=== PATIENT | female | born 1950 | race Caucasian/White ===

== ENCOUNTER → 2018-03-20 07:39 | Outpatient (CLI) | payer MEDICARE, OTHER, SELFPAY ==
[2018-03-20 08:25] LABS: Add Manual Diff / Slide Review NO; Basophils Percent Auto 1.9 % (0-2); Eosinophils Percent Auto 12.5 % (2-4); Hematocrit 39.2 % (36-46); Hemoglobin 12.9 g/dL (12.0-16.0); Lymphocytes Percent Auto 19.2 % (25-40); Mean Corpuscular HGB Conc 32.8 % (30-36); Mean Corpuscular Hemoglobin 26.9 PG (26-34); Mean Corpuscular Volume 82.2 fL (80-100); Monocytes Percent Auto 11.1 % (3-14); Neutrophils Absolute Auto 3100 /uL (3000-5900); Neutrophils Percent Auto 55.3 % (50-75); Platelet Count 312 X10^3/uL (150-400); Red Blood Cell Count 4.78 X10^6/uL (4.0-5.2); Red Cell Distribution Width 14.9 % (11.6-14.8); White Blood Cell Count 5.5 X10^3/uL (4.5-11.0)
[2018-03-20 08:57] LABS: Alanine Aminotransferase 27 IU/L (9-52); Albumin 4.2 g/dL (3.5-5.0); Albumin Globulin Ratio 1.4 (1.0-2.8); Alkaline Phosphatase 67 U/L (38-126); Aspartate Aminotransferase 25 IU/L (14-36); BUN Creatinine Ratio 18.8 (6-22); Bilirubin Total 0.5 mg/dL (0.2-1.3); Blood Urea Nitrogen 15 mg/dL (7-17); Calcium 9.2 mg/dL (8.4-10.2); Carbon Dioxide 28 mmol/L (22-32); Chloride 103 mmol/L (98-107); Cholesterol 253 mg/dL (140-199); Estimated Glomerular Filt Rate > 60.0 mL/min (>60); Globulin 2.9 g/dL (1.7-4.1); Glucose 100 mg/dL (80-110); HDL Cholesterol 66 mg/dL (40-60); HEMOLYSIS < 15 (0-50); LDL Cholesterol Calculated 161 mg/dL (<100); Potassium 4.3 mmol/L (3.4-5.1); Sodium 139 mmol/L (137-145); Total Protein 7.1 g/dL (6.3-8.2); Triglycerides 130 mg/dL (35-150)
== END ==
PROVIDERS: PCP Family Medicine; Visit Provider Family Medicine
DX: E78.2 Mixed hyperlipidemia (principal); E03.9 Hypothyroidism, unspecified
CPT/HCPCS: 36415; 80053; 80061; 84439; 84443; 85025

== ENCOUNTER → 2018-03-22 15:14 | Outpatient (CLI) | payer MEDICARE, OTHER, SELFPAY | PROVIDERS: Family Provider Naturopath; PCP Family Medicine; Visit Provider Physician Assistant | DX: N30.01 Acute cystitis with hematuria (principal) | CPT/HCPCS: 87086 ==

== ENCOUNTER → 2018-05-23 12:17 | Outpatient (CLI) | payer MEDICARE, OTHER, SELFPAY ==
[2018-05-23 14:02] LABS: Thyroid Stimulating Hormone 0.06 uIU/mL (0.47-4.68)
== END ==
PROVIDERS: Family Provider Naturopath; PCP Family Medicine; Visit Provider Family Medicine
DX: E03.9 Hypothyroidism, unspecified (principal)
CPT/HCPCS: 36415; 84443

== ENCOUNTER → 2018-06-25 12:36 | Outpatient (CLI) | payer MEDICARE, OTHER, SELFPAY ==
--- NOTE | 2018-06-25 12:39 | DI.MG.S_ITS ---
BILATERAL DIGITAL SCREENING MAMMOGRAM 3D/2D WITH CAD: 06/25/2018 CLINICAL: Routine screening. Comparison is made to exams dated: 03/23/2017 mammogram and 07/24/2014 mammogram - [facility]. The tissue of both breasts is heterogeneously dense. This may lower the sensitivity of mammography. Current study was also evaluated with a Computer Aided Detection (CAD) system. There is a focal asymmetry in the left breast at 6 o'clock posterior depth. No other significant masses, calcifications, or other findings are seen in either breast. IMPRESSION: INCOMPLETE: NEEDS ADDITIONAL IMAGING EVALUATION The focal asymmetry in the left breast is indeterminate. Additional views with possible ultrasound are recommended. This exam was interpreted at Station ID: [id number]. NOTE: For mammograms, a report in lay terms will be sent to the patient. Approximately 15% of breast malignancies will not be visualized mammographically. In the management of a palpable breast mass, a negative mammogram must not discourage biopsy of a clinically suspicious lesion. Electronically Signed By: Noris low/shaji:06/25/2018 13:22:08 letter sent: Additional Imaging Needed ACR BI-RADS Category 0: Incomplete 3340F
== END ==
PROVIDERS: Family Provider Naturopath; PCP Family Medicine; Visit Provider Family Medicine
DX: Z12.31 Encounter for screening mammogram for malignant neoplasm of breast (principal)
CPT/HCPCS: 77063; 77067

== ENCOUNTER → 2018-07-11 13:47 | Outpatient (CLI) | payer MEDICARE, OTHER, SELFPAY ==
[2018-07-11 15:41] LABS: Thyroid Stimulating Hormone 0.16 uIU/mL (0.47-4.68)
== END ==
PROVIDERS: Family Provider Naturopath; PCP Family Medicine; Visit Provider Family Medicine
DX: E03.9 Hypothyroidism, unspecified (principal)
CPT/HCPCS: 36415; 84443

== ENCOUNTER → 2018-07-18 13:41 | Outpatient (CLI) | payer MEDICARE, OTHER, SELFPAY ==
--- NOTE | 2018-07-18 13:45 | DI.US.S_ITS ---
ULTRASOUND OF LEFT BREAST: 07/18/2018 CLINICAL: Patient returns for additional imaging over a suspected mass in the left breast. Comparison is made to exams dated: 07/18/2018 mammogram, 06/25/2018 mammogram, and 03/23/2017 mammogram - [facility]. Color flow and real-time ultrasound of the left breast were performed on the areas of interest. Weeks scale images of the real-time examination were reviewed. There is 0.8 cm x 1.2 cm x 0.8 cm irregular mass in the left breast at 6 o'clock posterior depth. This irregular mass is hypoechoic with posterior acoustic shadowing. This correlates with mammography findings. IMPRESSION: HIGHLY SUGGESTIVE OF MALIGNANCY The 0.8 cm x 1.2 cm x 0.8 cm irregular mass in the left breast is highly suggestive of malignancy. An ultrasound guided biopsy is recommended. This exam was interpreted at Station ID: [id number]. SUMMARY: This was discussed with the patient by the radiologist Dr. Fonseca at the time of the exam. Electronically Signed By: Noris low/:07/18/2018 16:25:26 letter sent: Biopsy Required Ultrasound BI-RADS: 5 Highly suggestive of malignancy
--- NOTE | 2018-07-18 13:45 | DI.MG.S_ITS ---
UNILATERAL LEFT DIGITAL DIAGNOSTIC MAMMOGRAM 3D/2D WITH ADDITIONAL VIEWS: 07/18/2018 CLINICAL: Additional evaluation requested from prior study. Comparison is made to exams dated: 06/25/2018 mammogram, 03/23/2017 mammogram, and 07/24/2014 mammogram - [facility]. The tissue of left breast is heterogeneously dense. This may lower the sensitivity of mammography. There is a focal asymmetry in the left breast at 6 o'clock posterior depth. This is seen in additional views. No other significant masses or calcifications are seen in the breast. IMPRESSION: INCOMPLETE: NEEDS ADDITIONAL IMAGING EVALUATION The focal asymmetry in the left breast is indeterminate. A targeted ultrasound of the left breast is recommended and will be performed immediately following this exam. This exam was interpreted at Station ID: [id number]. NOTE: For mammograms, a report in lay terms will be sent to the patient. Approximately 15% of breast malignancies will not be visualized mammographically. In the management of a palpable breast mass, a negative mammogram must not discourage biopsy of a clinically suspicious lesion. Electronically Signed By: Noris Earl M.D. lk/:07/18/2018 15:47:43 letter sent: Additional Imaging Needed ACR BI-RADS Category 0: Incomplete 3340F
== END ==
PROVIDERS: Family Provider Naturopath; PCP Family Medicine; Visit Provider Family Medicine
DX: R92.8 Other abnormal and inconclusive findings on diagnostic imaging of breast (principal); N63.20 Unspecified lump in the left breast, unspecified quadrant
CPT/HCPCS: 76642; 77065; G0279

== ENCOUNTER → 2018-08-03 13:10 | Outpatient (CLI) | payer MEDICARE, OTHER, SELFPAY ==
--- NOTE | 2018-08-03 | PATH_ITS ---
[facility] Accession Number: [id number] . 01 Material submitted: . LEFT BREAST MASS 6 O'CLOCK 4 CM FROM NIPPLE . 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 [place]ren grade 2 (poor tubule formation, intermediate nuclear grade, low mitotic activity). 2. Greatest linear extent: 0.6 cm, as measured on glass slide. 3. Ductal carcinoma in situ: Present, solid. 4. Microcalcifications: Not identified. 5. Lymphovascular invasion: Not identified. . CAP BREAST BIOMARKER REPORTING TEMPLATE: . Estrogen Receptor (ER) Status: Positive, 90%. Average intensity of staining: Strong. Primary antibody: SP1 Progesterone Receptor (PgR) Status: Positive, 90%. Average intensity of staining: Strong. Primary antibody: 1E2 HER2 (by immunohistochemistry): Equivocal (2+) Percentage of cells with uniform intense complete membrane staining: Primary antibody: 4B5 . Cold Ischemia and Fixation Times: Meets requirements in the latest version of the ASCO/CAP guidelines. Testing performed on Block Number: MRV/08/07/2018 . 02 Comment: FISH for HER2 gene amplification will be performed and results issued in an addendum. . As part of routine software quality tester, Dr. Ryder has reviewed this case and agrees with the above diagnosis. The finding of ductal carcinoma was repoted to Dr. Cazares's nurse, Lynda, by Dr. Olivier Logan on 08/07/2018 at 3 p.m. . 02 Electronically signed: . Olivier Logan MD, PhD, Pathologist NPI- [id number] . 01 Gross description: . Received in formalin, labeled US BX breast per W device, are multiple core biopsies of zapata-white and bright yellow fibrofatty tissue (lengths: 1.1 cm-2.0 cm, diameters-0.2 cm). Entirely submitted in cassette A1. Note: Approximate total fixation time in formalin-43 hours 30 minutes calculated using a collection date of 08/03/2018 with a time in fixative of 1410. ([id number]) /MRV . 02 Microscopic: . Sections are of breast parenchyma infiltrated by a proliferation of epithelioid cells in both nested and linear profiles, consistent with carcinoma. To further evaluate the carcinoma cells, an e-cadherin immunostain is performed and is strongly and diffusely positive, consistent with ductal carcinoma, and strongly arguing against lobular carcinoma. Additionally, the carcinoma cells are strongly and diffusely positive for estrogen receptor and progesterone receptor immunoreactivity. The carcinoma cells are equivocal (2+) for HER-2 protein overexpression by immunohistochemistry. All control stains show appropriate reactivity. . * This test was developed and its performance characteristics determined by [employer]. It has not been cleared or approved by the U.S. Food and Drug Administration. The FDA has determined that such clearance or approval is not necessary. This test is used for clinical purposes. It should not be regarded as investigational or for research. . 02 Pathologist provided ICD-10: C50.912 . 02 CPT . 067040, C40559, R18291 Performed at: 01 [facility] [address] [id number] MD Darwin Solis MD Phone: [phone] Performed at: [address] [id number] MD Marcia Ryder MD Phone: [phone]
--- NOTE | 2018-08-03 | DI.MG.S_ITS ---
UNILATERAL LEFT DIGITAL DIAGNOSTIC MAMMOGRAM POST-NEEDLE BIOPSY: 08/03/2018 CLINICAL: Left breast mass. Post clip placement. Comparison is made to exams dated: 07/18/2018 ultrasound, 07/18/2018 mammogram, and 06/25/2018 mammogram - [facility]. The tissue of left breast is heterogeneously dense. This may lower the sensitivity of mammography. There is a marker clip in the appropriate position in the left breast at 6 o'clock middle depth. This marker clip placement is at the biopsy site. IMPRESSION: POST PROCEDURE MAMMOGRAM FOR MARKER PLACEMENT There was a successful marker clip placement in the left breast middle depth. This exam was interpreted at Station ID: [id number]. NOTE: For mammograms, a report in lay terms will be sent to the patient. Approximately 15% of breast malignancies will not be visualized mammographically. In the management of a palpable breast mass, a negative mammogram must not discourage biopsy of a clinically suspicious lesion. Electronically Signed By: Christopher rush/:08/03/2018 15:41:35 ACR BI-RADS Category Post-procedure mammogram for marker placement
--- NOTE | 2018-08-03 13:12 | DI.US.S_ITS ---
ULTRASOUND GUIDED BIOPSY LEFT BREAST USING VACUUM DEVICE WITH MARKING DEVICE INSERTED: 08/03/2018 CLINICAL: Left breast mass. PATIENT CONSENT: Risks (minor bleeding, infection, vasovagal reaction and repeat procedure), benefits and alternatives were explained to the patient and written informed consent was obtained. Correlation is made to exams dated: 07/18/2018 ultrasound, 07/18/2018 mammogram, and 06/25/2018 mammogram - [facility]. An ultrasound guided biopsy using real-time ultrasound was performed for the irregular shaped lesion located in the left breast at 6 o'clock posterior depth. The skin was prepped in the usual manner. Local anesthetic was administered to the access site. A small incision was made in the breast. The abnormality was approached from the lateral aspect. A biopsy needle was placed adjacent to the abnormality under ultrasound guidance. Once the needle was documented to be in the correct location, five specimens were obtained using the Mammotome biopsy system. A clip was inserted into the biopsy cavity. The specimens were sent to the laboratory for pathological analysis. IMPRESSION: ULTRASOUND GUIDED BIOPSY MALIGNANT Ultrasound guided biopsy of the lesion in the left breast at 6 o'clock posterior depth was successful. Pathology indicates malignant invasive ductal carcinoma (ID). Pathology results are concordant with imaging findings. This exam was interpreted at Station ID: [id number]. Christopher rush,devante/:08/08/2018 17:33:41
== END ==
PROVIDERS: Family Provider Naturopath; PCP Family Medicine; Visit Provider Family Medicine
DX: C50.812 Malignant neoplasm of overlapping sites of left female breast (principal); Z17.0 Estrogen receptor positive status [ER+]
CPT/HCPCS: 19083; 77065; 88305; 88341; 88342

== ENCOUNTER → 2018-08-27 12:53 | Outpatient (CLI) | payer MEDICARE, OTHER, SELFPAY ==
[2018-08-27 14:07] LABS: Free T3, Triiodothyronine Free 3.03 pg/mL (2.77-5.27); Free T4, Direct Thyroxine 1.32 ng/dL (0.78-2.19)
[2018-08-27 14:20] LABS: Thyroid Stimulating Hormone 1.91 uIU/mL (0.47-4.68)
== END ==
PROVIDERS: PCP Family Medicine; Visit Provider Family Medicine
DX: E03.9 Hypothyroidism, unspecified (principal)
CPT/HCPCS: 36415; 84439; 84443; 84481

== ENCOUNTER → 2018-11-13 14:03 | Outpatient (CLI) | payer MEDICARE, OTHER, SELFPAY | PROVIDERS: Family Provider Naturopath; PCP Family Medicine; Visit Provider Internal Medicine Hematology & Oncology | DX: C50.919 Malignant neoplasm of unspecified site of unspecified female breast (principal); Z78.0 Asymptomatic menopausal state; E07.9 Disorder of thyroid, unspecified | CPT/HCPCS: 77080 ==

== ENCOUNTER → 2018-11-23 07:49 | Outpatient (CLI) | payer MEDICARE, OTHER, SELFPAY ==
[2018-11-23 09:17] LABS: Cholesterol 264 mg/dL (140-199); HDL Cholesterol 65 mg/dL (40-60); LDL Cholesterol Calculated 177 mg/dL (<100); Triglycerides 111 mg/dL (35-150)
== END ==
PROVIDERS: Family Provider Naturopath; PCP Family Medicine; Visit Provider Internal Medicine Hematology & Oncology
DX: C50.512 Malignant neoplasm of lower-outer quadrant of left female breast (principal); E78.5 Hyperlipidemia, unspecified
CPT/HCPCS: 36415; 80061

== ENCOUNTER 2019-01-22 09:00 | Outpatient (RCR) | payer MEDICARE, OTHER, SELFPAY ==
--- NOTE | 2018-12-27 15:12 | PT.OIE ---
Current Diagnoses Other specified postprocedural states (12/27/18) Past Medical History (Last Updated 11/29/18 @ 10:54 by Diana Cazares MD) Breast cancer (Chronic) Hyperlipidemia (Chronic) Ankle pain (Chronic 1996) Diverticular disease (Chronic 2006) Fibroids (Chronic) Frequent UTI (Chronic 1977) Glaucoma (Chronic 2011) Hypothyroidism (Chronic) Pinguecula (Chronic 1991) Pterygium (Chronic 1991) Ankle sprain (Resolved 1996) Chicken pox (Resolved 1961) Colon polyps (Resolved 2006) HSV-1 (herpes simplex virus 1) infection (Resolved 1953) Infertility (Resolved) Measles (Resolved 1959) Mumps (Resolved 1959) Rubella (Resolved 1959) Scarlet fever (Resolved 1958) Shingles (Resolved 2010) Urethral cyst (Resolved 2000) Past Surgical History (Last Updated 03/23/18 @ 11:27 by Martina Vance) Anesthesia (Resolved) History of colonoscopy with polypectomy (Resolved 07/2013) History of urinary tract surgery (Resolved 2000) Status post tonsillectomy and adenoidectomy (Resolved 1959) Provider Visit Care Team Role Provider Type Chiara Lang ND Family Provider Non-Staff Specialty: Naturopathy Address: [address] [place] [address] Email: Diana Cazares MD Attending Provider Physician Primary Care Provider Specialty: Family Practice Address: [address] [place] [address] Email: [email or web address] Physical Therapy Initial Evaluation PT-OP-A Visit Information Start: 12/27/18 13:47 Freq: Status: Active Protocol: Document 12/27/18 13:47 HUBERT (Rec: 12/27/18 14:47 SAK [id number]) Out-Patient Physical Therapy Visit Information Visit Information Visit Type Initial Evaluation Visit Start Time 13:45 Visit Stop Time 14:30 Total Visit Minutes 45 Visit Number 1 Number of BANDAGE WRAPPING MACHINE OPERATOR Visits 0 Evaluation Information Evaluation Date 12/27/18 Precautions Precautions Just finished radiation treatments 12/26/18 PT-OP-B Current Condition Start: 12/27/18 13:47 Freq: Status: Active Protocol: Document 12/27/18 13:47 [facility] (Rec: 12/27/18 14:47 [facility] [id number]) Current Condition History of Current Condition Onset Date July 2018 Current Complaints Concerned about potential for lymphedema History of Current Condition diagnosed left breast CA July 2018, lumpectomy 10/03 with 3 lymph nodes removed . all benign. Completed radiation 12/26/18. Reports pink, tender and bumpy skin. Using ointment consistently. Has appointment with oncologist 01/10/19, possible medication for 5 years. Concerned about potential for and prevention of lymphedema. Patient reports she has full range of motion of her left UE , prior to her diagnosis and treatment exercised at home to include resistance ex with tubing, push-ups, stretching. Would like to be able to resume her prior ex. Treatment Goals Patient/Caregiver Goals Education regarding lymphedema , screening, resume prior activity level. 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 [employer] Baseline Function- Recreation/Hobbies painting Current Functional Impairments (Reported) Functional Limitations- ADL's No limitations Functional Limitations- Mobility/Gait no limitations Functional Limitations- Work/School Not doing any physical work Functional Limitations- Recreation/ Not doing ex program Hobbies PT-OP-C Subjective Start: 12/27/18 13:47 Freq: Status: Active Protocol: Document 12/27/18 13:47 [facility] (Rec: 12/27/18 15:12 [facility] [id number]) Patient Questionnaires Lymphedema Life Impact Score Lymphedema Score 0 Lymphedema Impairment 0% Impaired (Score 18) OP-PT Pain Assessment Pain Assessment Grid Paper Pain Assessment Grid Completed Yes Comments Pain Comments Denies pain PT-OP-K Range of Motion Start: 12/27/18 13:47 Freq: Status: Active Protocol: Document 12/27/18 13:47 [facility] (Rec: 12/27/18 15:12 [facility] [id number]) Shoulder Goniometric Range of Motion Shoulder Measured in Degrees stefani Shoulder ROM WFL Yes PT-OP-N Lymphedema Start: 12/27/18 13:47 Freq: Status: Active Protocol: Document 12/27/18 13:47 [facility] (Rec: 12/27/18 15:12 [facility] [id number]) Lymphedema Measurements Upper Extremity Circumference Measurements Left Affected MCP 19.3 cm Wrist 16.8 cm 5 cm From Distal Crease 18 cm 10 cm From Distal Crease 21 cm 15 cm From Distal Crease 24.1 cm 20 cm From Distal Crease 25.1 cm 25 cm From Distal Crease 26.4 cm 30 cm From Distal Crease 27.3 cm 35 cm From Distal Crease 29.6 cm 40 cm From Distal Crease 31.3 cm Axilla 35 cm right MCP 20 cm Wrist 18 cm 5 cm From Distal Crease 21.7 cm 10 cm From Distal Crease 24.5 cm 15 cm From Distal Crease 25 cm 20 cm From Distal Crease 26 cm 25 cm From Distal Crease 27.2 cm 30 cm From Distal Crease 29.5 cm 35 cm From Distal Crease 31.4 cm 40 cm From Distal Crease 31.5 cm Axilla 33.6 cm PT-OP-Q Treatments Start: 12/27/18 13:47 Freq: Status: Active Protocol: Document 12/27/18 13:47 [facility] (Rec: 12/27/18 15:12 [facility] [id number]) Lymphedema Treatment Patient Education Lymphedema Prevention completed, written handout and discussion Lymphedema Precautions completed, written handout and discussion Compression Garments Given written information; measurements and lymphedema products website inf PT-OP-T Assessment and Plan Start: 12/27/18 13:47 Freq: Status: Active Protocol: Document 12/27/18 13:47 [facility] (Rec: 12/27/18 15:12 [facility] [id number]) Physical Therapy Assessment Rehab Potential Rehabilitation Potential Excellent Evaluation Complexity Number of Personal Factors/Comorbidities 1-2 Number of Body Systems Impaired 1-2 Clinical Presentation at Evaluation Evolving Impairments Impairments Edema Goals 1 Impairment knowledge deficit regarding lymphedema Short Term Goal (STG) Educate patient regarding prevention, precautions, physiology of lymphedema. STG Duration 1 month Mcfp Goal (LTG) Patient to have no signs or symptoms of lymphedema, demonstrate good understanding of following precautions, and obtain compression sleeve for left UE to be used with plane travel and heavy physical activity for prevention of lymphedema. LTG Duration 2 months Assessment Summary Assessment Patient presents to PT 1 day after completing radiation treatments due to diagnosis of left breast CA, s/p lumpectomy with 3 lymph nodes removed 10/03/18. She has full range of motion of her left shoulder, well-healed surgical scar with good mobility. Her skin is reddened and tender but intact following radiation treatments. At this time does not have signs or symptoms of lymphedema, though circumferential measurement at left axilla 1.4 cm larger than right; feel this is likely due to inflammation and swelling s/p radiation. She demonstrated good understanding of lymphedema precautions and prevention. Agreeable to follow-up appointment in 2-3 weeks to remeasure at axilla, do further education as needed, and evaluate compression sleeve that she plans to obtain for prevention after discussion of benefits. Will determine need for any further PT visits at that time . Physical Therapy Plan Frequency and Duration Frequency of Treatment 4 visits Duration of Treatment 2 months Plan of Care Start Date 12/27/18 Plan of Care End Date 02/26/19 Therapeutic Interventions Therapeutic Interventions Home Exercise Program Lymphedema Management Manual Therapy Patient/Caregiver Education Therapeutic Activities Therapeutic Exercises Next Visit Focus/Plan Next Note Type Treatment Note Next Visit Plan circumferential measurement left axilla, evaluate for signs and symptoms of lymphedema, complete education regarding prevention and precautions as needed. Evaluate fit of compression sleeve if patient obtains.
--- NOTE | 2018-12-27 15:13 | PT.OPPOC ---
Current Diagnoses Other specified postprocedural states (12/27/18) Provider Visit Care Team Role Provider Type Chiara Lang ND Family Provider Non-Staff Specialty: Naturopathy Address: [address] [place] [address], [id number] Email: Diana Cazares MD Attending Provider Physician Primary Care Provider Specialty: Family Practice Address: [address] [place] [address], [address] Email: [email or web address] Plan Of Care PT-OP-T Assessment and Plan Start: 12/27/18 13:47 Freq: Status: Active Protocol: Document 12/27/18 13:47 [facility]UBERT (Rec: 12/27/18 15:12 SAK [id number]) Physical Therapy Assessment Rehab Potential Rehabilitation Potential Excellent Evaluation Complexity Number of Personal Factors/Comorbidities 1-2 Number of Body Systems Impaired 1-2 Clinical Presentation at Evaluation Evolving Impairments Impairments Edema Goals 1 Impairment knowledge deficit regarding lymphedema Short Term Goal (STG) Educate patient regarding prevention, precautions, physiology of lymphedema. STG Duration 1 month Residential Goal (LTG) Patient to have no signs or symptoms of lymphedema, demonstrate good understanding of following precautions, and obtain compression sleeve for left UE to be used with plane travel and heavy physical activity for prevention of lymphedema. LTG Duration 2 months Assessment Summary Assessment Patient presents to PT 1 day after completing radiation treatments due to diagnosis of left breast CA, s/p lumpectomy with 3 lymph nodes removed 10/03/18. She has full range of motion of her left shoulder, well-healed surgical scar with good mobility. Her skin is reddened and tender but intact following radiation treatments. At this time does not have signs or symptoms of lymphedema, though circumferential measurement at left axilla 1.4 cm larger than right; feel this is likely due to inflammation and swelling s/p radiation. She demonstrated good understanding of lymphedema precautions and prevention. Agreeable to follow-up appointment in 2-3 weeks to remeasure at axilla, do further education as needed, and evaluate compression sleeve that she plans to obtain for prevention after discussion of benefits. Will determine need for any further PT visits at that time . Physical Therapy Plan Frequency and Duration Frequency of Treatment 4 visits Duration of Treatment 2 months Plan of Care Start Date 12/27/18 Plan of Care End Date 02/26/19 Therapeutic Interventions Therapeutic Interventions Home Exercise Program Lymphedema Management Manual Therapy Patient/Caregiver Education Therapeutic Activities Therapeutic Exercises Next Visit Focus/Plan Next Note Type Treatment Note Next Visit Plan circumferential measurement left axilla, evaluate for signs and symptoms of lymphedema, complete education regarding prevention and precautions as needed. Evaluate fit of compression sleeve if patient obtains. Plan of Care Dates Plan of Care Start Date 12/27/18 Plan of Care End Date 02/26/19 Please Sign and Return: I have reviewed this Plan of Care and certify that the skilled therapy services above are required to meet the patient?s needs. Physician Signature Date Printed Name and Credentials Clinical Instructor Signature Printed Name and Credentials
--- NOTE | 2019-01-08 10:28 | PT.OTN ---
Current Diagnoses Other specified postprocedural states (01/08/19) Physical Therapy Treatment Note PT-OP-A Visit Information Start: 12/27/18 13:47 Freq: Status: Active Protocol: Document 01/08/19 09:00 GGD (Rec: 01/08/19 10:28 GGD [email or web address]) Out-Patient Physical Therapy Visit Information Visit Information Visit Type Treatment Note Visit Start Time 09:00 Visit Stop Time 10:00 Total Visit Minutes 60 Visit Number 2 Number of DINING HOST Visits 1 Evaluation Information Evaluation Date 12/27/18 PT-OP-B Current Condition Start: 12/27/18 13:47 Freq: Status: Active Protocol: Document 12/27/18 13:47 SAK (Rec: 12/27/18 14:47 SAK [id number]) Current Condition History of Current Condition Onset Date July 2018 Current Complaints Concerned about potential for lymphedema History of Current Condition diagnosed left breast CA July 2018, lumpectomy 10/03 with 3 lymph nodes removed . all benign. Completed radiation 12/26/18. Reports pink, tender and bumpy skin. Using ointment consistently. Has appointment with oncologist 01/10/19, possible medication for 5 years. Concerned about potential for and prevention of lymphedema. Patient reports she has full range of motion of her left UE , prior to her diagnosis and treatment exercised at home to include resistance ex with tubing, push-ups, stretching. Would like to be able to resume her prior ex. Treatment Goals Patient/Caregiver Goals Education regarding lymphedema , screening, resume prior activity level. 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 PT-OP-K Range of Motion Start: 12/27/18 13:47 Freq: Status: Active Protocol: Document 12/27/18 13:47 SAK (Rec: 12/27/18 15:12 SAK [id number]) Shoulder Goniometric Range of Motion Shoulder Measured in Degrees stefani Shoulder ROM WFL Yes PT-OP-N Lymphedema Start: 12/27/18 13:47 Freq: Status: Active Protocol: Document 01/08/19 09:00 GGD (Rec: 01/08/19 10:28 GGD [email or web address]) Lymphedema Measurements Upper Extremity Circumference Measurements Left Affected MCP 19.2 cm Wrist 16.1 cm 5 cm From Distal Crease 17.6 cm 10 cm From Distal Crease 20.5 cm 15 cm From Distal Crease 23.9 cm 20 cm From Distal Crease 24.9 cm 25 cm From Distal Crease 26.1 cm 30 cm From Distal Crease 26.9 cm 35 cm From Distal Crease 28.8 cm 40 cm From Distal Crease 31.2 cm Axilla 34.5 cm PT-OP-Q Treatments Start: 12/27/18 13:47 Freq: Status: Active Protocol: Document 01/08/19 09:00 GGD (Rec: 01/08/19 10:28 GGD [email or web address]) Therapeutic Exercises Sidelying Exercises 1 Sidelying Exercise Name roll and reach Reps/Minutes 10x Manual Therapy Treatment Soft Tissue Mobilization 1 Body Location left shoulder and axilla Mobilization Type Rolling Other Intensity/Depth Moderate Body Position Supine Lymphedema Treatment Sequential Lymphedema Exercises Location UE Duration 15 min Patient Education Lymphedema Precautions reviewed Sequential Lymphedema Exercises written handout and reviewed PT-OP-T Assessment and Plan Start: 12/27/18 13:47 Freq: Status: Active Protocol: Document 01/08/19 09:00 GGD (Rec: 01/08/19 10:28 GGD [email or web address]) Physical Therapy Assessment Assessment Summary Assessment PT had decrease in circumferential measurements. She had mild decrease in scar tissue mobility. She had good tolerance to exercise. Physical Therapy Plan Frequency and Duration Frequency of Treatment 4 visits Duration of Treatment 2 months Plan of Care Start Date 12/27/18 Plan of Care End Date 02/26/19 Therapeutic Interventions Therapeutic Interventions Home Exercise Program Lymphedema Management Manual Therapy Patient/Caregiver Education Therapeutic Activities Therapeutic Exercises Next Visit Focus/Plan Next Note Type Treatment Note Next Visit Plan circumferential measurement left axilla, evaluate for signs and symptoms of lymphedema, Evaluate fit of compression sleeve if patient obtains. Progress HEP
--- NOTE | 2019-01-22 10:20 | PT.OTN ---
Current Diagnoses Other specified postprocedural states (01/22/19) Physical Therapy Treatment Note PT-OP-A Visit Information Start: 12/27/18 13:47 Freq: Status: Active Protocol: Document 01/22/19 09:57 GGD (Rec: 01/22/19 10:19 GGD [email or web address]) Out-Patient Physical Therapy Visit Information Visit Information Visit Type Treatment Note Visit Start Time 09:00 Visit Stop Time 09:55 Total Visit Minutes 55 Visit Number 3 Number of STAY CUTTER Visits 2 Evaluation Information Evaluation Date 12/27/18 PT-OP-B Current Condition Start: 12/27/18 13:47 Freq: Status: Active Protocol: Document 12/27/18 13:47 SAK (Rec: 12/27/18 14:47 SAK [id number]) Current Condition History of Current Condition Onset Date July 2018 Current Complaints Concerned about potential for lymphedema History of Current Condition diagnosed left breast CA July 2018, lumpectomy 10/03 with 3 lymph nodes removed . all benign. Completed radiation 12/26/18. Reports pink, tender and bumpy skin. Using ointment consistently. Has appointment with oncologist 01/10/19, possible medication for 5 years. Concerned about potential for and prevention of lymphedema. Patient reports she has full range of motion of her left UE , prior to her diagnosis and treatment exercised at home to include resistance ex with tubing, push-ups, stretching. Would like to be able to resume her prior ex. Treatment Goals Patient/Caregiver Goals Education regarding lymphedema , screening, resume prior activity level. 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 PT-OP-K Range of Motion Start: 12/27/18 13:47 Freq: Status: Active Protocol: Document 12/27/18 13:47 SAK (Rec: 12/27/18 15:12 SAK [id number]) Shoulder Goniometric Range of Motion Shoulder Measured in Degrees stefani Shoulder ROM WFL Yes PT-OP-N Lymphedema Start: 12/27/18 13:47 Freq: Status: Active Protocol: Document 01/22/19 09:57 GGD (Rec: 01/22/19 10:19 GGD [email or web address]) Lymphedema Measurements Upper Extremity Circumference Measurements Left Affected MCP 19 cm Wrist 16.2 cm 5 cm From Distal Crease 17.4 cm 10 cm From Distal Crease 20.4 cm 15 cm From Distal Crease 23.9 cm 20 cm From Distal Crease 25 cm 25 cm From Distal Crease 25.5 cm 30 cm From Distal Crease 26 cm 35 cm From Distal Crease 28.2 cm 40 cm From Distal Crease 31.2 cm Axilla 33.9 cm PT-OP-Q Treatments Start: 12/27/18 13:47 Freq: Status: Active Protocol: Document 01/22/19 09:57 GGD (Rec: 01/22/19 10:19 GGD [email or web address]) Therapeutic Exercises Sidelying Exercises 1 Sidelying Exercise Name roll and reach Reps/Minutes 10x Manual Therapy Treatment Soft Tissue Mobilization 1 Body Location left shoulder and axilla Mobilization Type Rolling Other Intensity/Depth Moderate Body Position Supine Lymphedema Treatment Sequential Lymphedema Exercises Location UE Duration 15 min Patient Education Compression Garments reviewed PT-OP-T Assessment and Plan Start: 12/27/18 13:47 Freq: Status: Active Protocol: Document 01/22/19 09:57 GGD (Rec: 01/22/19 10:19 GGD [email or web address]) Physical Therapy Assessment Goals 1 Impairment knowledge deficit regarding lymphedema Short Term Goal (STG) Educate patient regarding prevention, precautions, physiology of lymphedema. 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 01/22/19 still needs to obtain compression sleeve LTG Duration 2 months Assessment Summary Assessment Pt stable circumferential measurements. She had improved mobility in scar tissue. She was able to demonstrate good under prevention and precautions. Physical Therapy Plan Discharge Physical Therapy Discharge Reasons Goals Met Next Visit Focus/Plan Next Note Type Discharge Summary
--- NOTE | 2019-02-04 09:38 | PT.OPDS ---
Current Diagnoses Other specified postprocedural states (01/22/19) Provider Visit Care Team Role Provider Type Chiara Lang ND Family Provider Non-Staff Specialty: Naturopathy Address: [address] [place] [address], [id number] Email: Diana Cazares MD Attending Provider Physician Primary Care Provider Specialty: Family Practice Address: [address] [place] [address], [id number] Email: [email or web address] Visit Number Visit Number 3 Discharge Summary PT-OP-B Current Condition Start: 12/27/18 13:47 Freq: Status: Active Protocol: Document 12/27/18 13:47 SAK (Rec: 12/27/18 14:47 SAK [id number]) Current Condition History of Current Condition Onset Date July 2018 Current Complaints Concerned about potential for lymphedema History of Current Condition diagnosed left breast CA July 2018, lumpectomy 10/03 with 3 lymph nodes removed . all benign. Completed radiation 12/26/18. Reports pink, tender and bumpy skin. Using ointment consistently. Has appointment with oncologist 01/10/19, possible medication for 5 years. Concerned about potential for and prevention of lymphedema. Patient reports she has full range of motion of her left UE , prior to her diagnosis and treatment exercised at home to include resistance ex with tubing, push-ups, stretching. Would like to be able to resume her prior ex. Treatment Goals Patient/Caregiver Goals Education regarding lymphedema , screening, resume prior activity level. 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 PT-OP-K Range of Motion Start: 12/27/18 13:47 Freq: Status: Active Protocol: Document 12/27/18 13:47 SAK (Rec: 12/27/18 15:12 SAK [id number]) Shoulder Goniometric Range of Motion Shoulder stefani Shoulder ROM WFL Yes PT-OP-N Lymphedema Start: 12/27/18 13:47 Freq: Status: Active Protocol: Document 01/22/19 09:57 GGD (Rec: 01/22/19 10:19 GGD [email or web address]) Lymphedema Measurements Upper Extremity Circumference Measurements Left Affected MCP 19 cm Wrist 16.2 cm 5 cm From Distal Crease 17.4 cm 10 cm From Distal Crease 20.4 cm 15 cm From Distal Crease 23.9 cm 20 cm From Distal Crease 25 cm 25 cm From Distal Crease 25.5 cm 30 cm From Distal Crease 26 cm 35 cm From Distal Crease 28.2 cm 40 cm From Distal Crease 31.2 cm Axilla 33.9 cm PT-OP-T Assessment and Plan Start: 12/27/18 13:47 Freq: Status: Active Protocol: Document 01/22/19 09:57 GGD (Rec: 01/22/19 10:19 GGD [email or web address]) Physical Therapy Assessment Goals 1 Impairment knowledge deficit regarding lymphedema Short Term Goal (STG) Educate patient regarding prevention, precautions, physiology of lymphedema. STG Duration achived 01/22/2019 Belt Knife Feeder Goal (LTG) Patient to have no signs or symptoms of lymphedema, demonstrate good understanding of following precautions, and obtain compression sleeve for left UE to be used with plane travel and heavy physical activity for prevention of lymphedema. 01/22/19 still needs to obtain compression sleeve LTG Duration 2 months Assessment Summary Assessment Pt stable circumferential measuremetns. She had improved mobility in scar tissue. She was able to demonstrate good under prevention and precautions. Physical Therapy Plan Discharge Physical Therapy Discharge Reasons Goals Met Next Visit Focus/Plan Next Note Type Discharge Summary
== END 2019-02-05 16:18 ==
LOC: PHYS 09:00
PROVIDERS: Family Provider Naturopath; PCP Family Medicine; Visit Provider Family Medicine
DX: Z98.890 Other specified postprocedural states (principal)
CPT/HCPCS: 97110; 97140; 97161; 97535

== ENCOUNTER → 2020-01-22 09:50 | Outpatient (CLI) | payer MEDICARE, OTHER, SELFPAY ==
[2020-01-22 12:06] LABS: Cholesterol 266 mg/dL (140-199); Glucose 99 mg/dL (80-110); HDL Cholesterol 53 mg/dL (40-60); LDL Cholesterol Calculated 179 mg/dL (<100); Triglycerides 171 mg/dL (35-150)
[2020-01-22 12:37] LABS: TSH w/ Reflex to FT4 0.09 uIU/mL (0.47-4.68)
[2020-01-22 16:54] LABS: Free T4, Direct Thyroxine 1.28 ng/dL (0.78-2.19)
== END ==
PROVIDERS: Family Provider Naturopath; PCP Naturopath; Referring Provider Family Medicine; Visit Provider Family Medicine
DX: Z13.1 Encounter for screening for diabetes mellitus (principal); C50.919 Malignant neoplasm of unspecified site of unspecified female breast; E03.9 Hypothyroidism, unspecified; E78.5 Hyperlipidemia, unspecified
CPT/HCPCS: 36415; 80061; 82947; 84439; 84443

== ENCOUNTER → 2020-03-03 12:50 | Outpatient (CLI) | payer MEDICARE, OTHER, SELFPAY ==
[2020-03-03 14:41] LABS: Thyroid Stimulating Hormone 0.099 uIU/mL (0.47-4.68)
== END ==
PROVIDERS: Family Provider Naturopath; PCP Family Medicine; Referring Provider Naturopath; Visit Provider Family Medicine
DX: E03.9 Hypothyroidism, unspecified (principal)
CPT/HCPCS: 36415; 84443

== ENCOUNTER → 2020-04-02 14:15 | Outpatient (CLI) | payer MEDICARE, OTHER, SELFPAY | PROVIDERS: Family Provider Naturopath; PCP Family Medicine; Referring Provider Internal Medicine Hematology & Oncology; Visit Provider Family Medicine | DX: Z78.0 Asymptomatic menopausal state (principal); E07.9 Disorder of thyroid, unspecified; Z85.3 Personal history of malignant neoplasm of breast | CPT/HCPCS: 77080 ==

== ENCOUNTER → 2020-04-16 10:27 | Outpatient (CLI) | payer MEDICARE, OTHER, SELFPAY ==
[2020-04-16 12:34] LABS: Free T3, Triiodothyronine Free 3.13 pg/mL (2.77-5.27); Free T4, Direct Thyroxine 1.02 ng/dL (0.78-2.19)
[2020-04-16 12:47] LABS: Thyroid Stimulating Hormone 3.02 uIU/mL (0.47-4.68)
--- NOTE | 2020-06-10 14:04 | ONC.MSW ---
Description: New Referral Navigation T/C Reason for Referral: Breast Cancer-transfer from [facility] Activity: HEALTHCARE TECHNICIAN has been coordinating with patient for a few weeks re: transferring her care and treatment here to [facility] from [facility], due to convenience of care in her own community. Pt began treatment 08/2018 at [facility] after her diagnosis, PCP is Dr. Cazares. Scheduled her for 07/08 at 11:00am, she will have her mammogram on 07/06 here at . Reviewed EMR. No further needs identified at this time.
== END ==
PROVIDERS: Family Provider Naturopath; PCP Family Medicine; Referring Provider Family Medicine; Visit Provider Family Medicine
DX: E03.9 Hypothyroidism, unspecified (principal)
CPT/HCPCS: 36415; 84439; 84443; 84481

== ENCOUNTER → 2020-06-16 08:55 | Outpatient (CLI) | payer MEDICARE, OTHER, SELFPAY ==
[2020-06-17 06:48] LABS: COVID19 Sendout Not Detected (Not Detect)
== END ==
PROVIDERS: PCP Family Medicine; Visit Provider Nurse Practitioner
DX: Z11.59 Encounter for screening for other viral diseases (principal)
CPT/HCPCS: 87635

== ENCOUNTER 2020-06-19 06:51 | Day surgery (SDC) | payer MEDICARE, OTHER, SELFPAY ==
[2020-06-19] MEDS: SODIUM CHLORIDE 0.9% 1,000 ML 200 ML IV (07:21)
[2020-06-19 07:22] VITALS: BP 137/79; PULSE 78; RESP 16; TEMP 37.4; O2SAT 99; BMI 25.0
--- NOTE | 2020-06-19 07:36 | PM.HP.1 ---
History of Present Illness History of Present Illness Date Patient Seen: 06/19/20 Time Patient Seen: 07:36 [place] [facility] [place]: This is a 69-year-old woman with history of colon polyps found on a colonoscopy about 7 years ago. She is here for follow-up colonoscopy. She says she was told to come back in 5 years, but got breast cancer, and that delayed her follow-up. She denies any new symptoms related to the GI tract. She denies any melena, hematochezia, unexplained abdominal pain, unexplained weight loss, changes in bowel habit. She denies any known family history of colon cancer or colon polyps. ROS: Thirteen system review is otherwise negative other than as mentioned below and in HPI. PE: GENERAL: Well groomed and cooperative. Appears stated age. Answers questions promptly and appropriately. Vital signs noted. HENT: Normocephalic, atraumatic. Hearing intact. EYES: Conjunctiva pink, sclera white, no periorbital swelling. CARDIOVASCULAR: Regular rate. No pedal edema. RESPIRATORY: Non-tachypneic, breathing comfortably on room air. GASTROINTESTINAL: Abdomen soft and non-distended GENITALURINARY: No flank tenderness. MUSCULOSKELETAL: Equal tone and mass bilaterally. SKIN: Warm, dry, soft, appropriate color for ethnicity. No other lesions, rashes, or wounds. NEURO: Alert and Oriented X 3. No gross sensory deficits, or cognitive issues. PSYCH: Appropriate affect and mood. Patient History Medical History Ankle pain (Chronic 1996) Ankle sprain (Resolved 1996) Breast cancer (Chronic) Chicken pox (Resolved 1961) Colon polyps (Resolved 2006) Diverticular disease (Chronic 2006) Fibroids (Chronic) Frequent UTI (Chronic 1977) Glaucoma (Chronic 2011) HSV-1 (herpes simplex virus 1) infection (Resolved 1953) Hyperlipidemia (Chronic) Hypothyroidism (Chronic) Infertility (Resolved) Measles (Resolved 1959) Mumps (Resolved 1959) Pinguecula (Chronic 1991) Pterygium (Chronic 1991) Rubella (Resolved 1959) Scarlet fever (Resolved 1958) Shingles (Resolved 2010) Urethral cyst (Resolved 2000) Surgical History Anesthesia (Resolved) History of colonoscopy with polypectomy (Resolved 07/2013) History of urinary tract surgery (Resolved 2000) Status post tonsillectomy and adenoidectomy (Resolved 1959) Family & Social History Family History Father Heart disease Hypertension Aneurysm Mother Heart disease Hyperlipidemia Alzheimer's disease Dementia Sister Age: 56 Autoimmune hepatitis Sister Age: 70 Mental health problem Asperger's syndrome Grandfather Cancer Grandmother Cancer Grandfather Pneumonia Grandmother Stroke Social History: household members spouse other gardening Tobacco & Substance use: Smoking Status Never smoker alcohol intake current alcohol intake frequency 0-2 drinks per day Substance Use Type does not use Meds Home Medications and Allergies Home Medications Medication Instructions Recorded Confirmed Type Ciferex 1 cap PO DAILY #0 09/30/16 06/19/20 History ascorbic acid (vitamin C) 500 mg PO DAILY #0 09/30/16 06/19/20 History omega 3-sqa-vnj-fish oil [Fish Oil] #0 09/30/16 01/07/19 History biotin 10 mg tablet 10 mg PO DAILY 03/27/18 06/19/20 History calcium carbonate 500 mg calcium 1,000 mg PO DAILY tab 01/27/20 06/19/20 History (1,250 mg) tablet lactobacillus combination no.9 4 4,000 mmu cells PO DAILY 01/27/20 06/19/20 History billion cell capsule letrozole 2.5 mg tablet 2.5 mg PO DAILY 01/27/20 06/19/20 History levothyroxine 50 mcg capsule 50 mcg PO DAILY #90 cap 01/27/20 06/19/20 Rx magnesium oxide 200 mg PO DAILY 01/27/20 06/19/20 History red yeast rice 600 mg tablet 2,400 mg PO DAILY tab 01/27/20 06/19/20 History vitamin B complex 1 tab PO DAILY 01/27/20 06/19/20 History Allergies Allergy/AdvReac Type Severity Reaction Status Date / Time Sulfa (Sulfonamide Allergy Mild Verified 06/19/20 07:08 Antibiotics) [SULFA (SULFONAMIDE ANTIBIOTICS)] nitrofurantoin AdvReac Severe Nausea, Verified 06/19/20 07:08 Stomach cramps Exam Vital Signs (past 8 hours): - 06/19/20 07:22 Temperature 99.3 F Pulse Rate 78 Respiratory Rate 16 Blood Pressure 137/79 Pulse Oximetry 99 Oxygen Delivery Method Room Air Assessment & Plan Assessment and plan (1) Personal history of colonic polyps: Status: Acute Assessment & Plan narrative: Risks and benefits of screening colonoscopy and possible polypectomy were discussed with the patient including risk of bleeding, perforation, need for additional procedures, risks of anesthesia. The patient desires to proceed with the colonoscopy procedure. COVID-19 COVID-19 status: Negative Result date/Date tested (Pos, Neg/Pending): 06/16/20 Time Spent With Patient Time with patient: 15-24 minutes Quality VTE Deep Vein Thrombosis/Pulmonary Embolism Present on Admission: No
--- NOTE | 2020-06-19 07:42 | PM.OP.ENDO ---
Operative Date/Time/Diagnoses Date of procedure: 06/19/20 Time of procedure: 07:42 Pre-op diagnosis: Personal history of colon polyps Post-op diagnosis: other (Personal history of colon polyps, no polyps on this colonoscopy) Procedure & Clinicians Study performed: Colonoscopy Procedural sedation performed by the endoscopist Indications: Personal history of colon polyps Surgeon: Janey Tatum Procedure Notes SCOAP/Timeout: Performed Procedure in detail: The patient was brought to the room and placed in left lateral decubitus position with all bony prominences padded. A time-out was performed and then the patient was given procedural sedation starting with 2 mg of Versed and 100 mcg of fentanyl. A total of 4 mg of Versed and 150 micro g of fentanyl were given for the entire procedure. Vitals were monitored throughout the procedure and remained stable. Once adequately sedated, the procedure was begun. A rectal exam was performed revealing no abnormalities. The colonoscope was then introduced to the rectum and advanced to the cecum in the usual fashion. The colon was quite tortuous, requiring multiple maneuvers to reach the cecum safely including using the stiffener, and counter pressure on the abdominal wall. The cecum was identified by the appendiceal orifice, the mucosal tri-fold, and the ileocecal valve. The scope was then retracted while rotating side to side and examining each mucosal fold. No polyps were seen in the colon. A few tiny scattered diverticula were seen. Otherwise normal exam. At the conclusion of the procedure retroflexion was performed and small grade 1-2 internal hemorrhoids without stigmata of bleeding were seen. The scope was then withdrawn from the rectum the procedure was concluded. The patient tolerated the procedure well and was transferred to the PACU in stable condition. Scope withdrawal time: 8 Sedation minutes: 20 Findings: other findings (Tortuous colon) Specimen(s): none sent Complications: none Impression: Tortuous colon, no polyps found, a few tiny scattered diverticula Post-procedure Recommendations: Colonscopy in 5 years (Due to tortuous colon and personal history of colon polyps) Follow up: as needed Disposition: PACU
[2020-06-19] MEDS: MIDAZOLAM 5 MG/5 ML VIAL IV (07:44)
[2020-06-19] MEDS: fentaNYL 250 MCG/5 ML INJ IV (07:44)
[2020-06-19 08:12] VITALS: BP 88/39; PULSE 75; RESP 12; TEMP 36.6; O2SAT 98
[2020-06-19 08:17] VITALS: BP 97/48; PULSE 79; RESP 17; O2SAT 96
[2020-06-19 08:21] VITALS: BP 128/72; PULSE 69; RESP 97; O2SAT 16
[2020-06-19 08:30] VITALS: BP 127/80; PULSE 73; RESP 16; O2SAT 97
[2020-06-19 08:52] VITALS: BP 118/68; PULSE 68; RESP 16; TEMP 36.6; O2SAT 98
== END 2020-06-19 08:53 | disposition home or self-care (01) ==
PROVIDERS: PCP Family Medicine; Referring Provider Family Medicine; Visit Provider Surgery
PROC: 0DJD8ZZ Inspection of Lower Intestinal Tract, Via Natural or Artificial Opening Endoscopic (ICD-10-PCS; CPT 45378; principal; 2020-06-19 07:45)
DX: Z12.11 Encounter for screening for malignant neoplasm of colon (principal); Z86.010 Personal history of colon polyps; K64.0 First degree hemorrhoids; K56.2 Volvulus; K57.30 Diverticulosis of large intestine without perforation or abscess without bleeding
CPT/HCPCS: G0105; 99152; J2250; J3010

== ENCOUNTER → 2020-07-06 17:18 | Outpatient (CLI) | payer MEDICARE, OTHER, SELFPAY ==
--- NOTE | 2020-07-06 | DI.MG.S_ITS ---
BILATERAL DIGITAL SCREENING MAMMOGRAM 3D/2D WITH CAD: 07/06/2020 CLINICAL: Routine screening. Comparison is made to exams dated: 01/29/2020 mammogram, 07/04/2019 mammogram, 10/03/2018 specimen - [facility], and 06/25/2018 mammogram - [facility]. The tissue of both breasts is heterogeneously dense. This may lower the sensitivity of mammography. Current study was also evaluated with a Computer Aided Detection (CAD) system. There are benign post operative findings in the left breast. No significant masses, calcifications, or other findings are seen in either breast. There has been no significant interval change. IMPRESSION: BENIGN There is no mammographic evidence of malignancy. A 1 year screening mammogram is recommended. This exam was interpreted at Station ID: [id number]. NOTE: For mammograms, a report in lay terms will be sent to the patient. Approximately 15% of breast malignancies will not be visualized mammographically. In the management of a palpable breast mass, a negative mammogram must not discourage biopsy of a clinically suspicious lesion. Electronically Signed By: Keiry abrams/shaji:07/07/2020 09:24:44 copy to: JINNY COOPER letter sent: Normal Exam ACR BI-RADS Category 2: Benign Finding(s) 3342F
== END ==
PROVIDERS: PCP Family Medicine; Referring Provider Family Medicine; Visit Provider Family Medicine
DX: Z12.31 Encounter for screening mammogram for malignant neoplasm of breast (principal)
CPT/HCPCS: 77063; 77067

== ENCOUNTER → 2020-11-19 11:06 | Outpatient (CLI) | payer MEDICARE, OTHER, SELFPAY ==
--- NOTE | 2020-11-19 11:09 | DI.RAD.S_ITS ---
PROCEDURE: XR FOOT RT MIN 3V INDICATIONS: entire foot pain,except toes TECHNIQUE: 3 views of the foot were acquired. COMPARISON: None. FINDINGS: Bones: No fractures or dislocations. No suspicious bony lesions. Soft tissues: No tibiotalar joint effusion. Achilles tendon appears normal. IMPRESSION: No fracture. No osseous lesion. If symptoms and/or clinical suspicion for pathology persists, further assessment with repeat radiographs (7-10 days) or advanced imaging (e.g. CT, MRI or bone scan) should be considered. Dictated by: Awilda Travis MD, PhD on 11/19/2020 at 13:22 Approved by: Awilda Travis MD, PhD on 11/19/2020 at 13:24
== END ==
PROVIDERS: PCP Family Medicine; Referring Provider Family Medicine; Visit Provider Family Medicine
DX: M79.671 Pain in right foot (principal); G89.29 Other chronic pain; M76.60 Achilles tendinitis, unspecified leg
CPT/HCPCS: 73630

== ENCOUNTER → 2021-03-05 07:29 | Outpatient (CLI) | payer MEDICARE, OTHER, SELFPAY ==
[2021-03-05 08:00] LABS: COVID19 -Nasal RAPID Negative (Negative)
== END ==
PROVIDERS: PCP Family Medicine; Visit Provider Physician Assistant
DX: R05 Cough (principal); Z20.822 Contact with and (suspected) exposure to COVID-19
CPT/HCPCS: 87635

== ENCOUNTER → 2021-04-22 08:19 | Outpatient (CLI) | payer MEDICARE, OTHER, SELFPAY ==
[2021-04-22 09:49] LABS: Cholesterol 270 mg/dL (140-199); HDL Cholesterol 63 mg/dL (40-60); LDL Cholesterol Calculated 182 mg/dL (<100); Triglycerides 124 mg/dL (35-150)
[2021-04-22 10:34] LABS: TSH w/ Reflex to FT4 4.42 uIU/mL (0.47-4.68)
== END ==
PROVIDERS: PCP Family Medicine; Referring Provider Family Medicine; Visit Provider Family Medicine
DX: E78.5 Hyperlipidemia, unspecified (principal); E03.9 Hypothyroidism, unspecified
CPT/HCPCS: 36415; 80061; 84443

== ENCOUNTER → 2021-07-07 10:05 | Outpatient (CLI) | payer MEDICARE, OTHER, SELFPAY ==
--- NOTE | 2021-07-07 10:08 | DI.MG.S_ITS ---
BILATERAL DIGITAL SCREENING MAMMOGRAM 3D/2D WITH CAD: 07/07/2021 CLINICAL: Routine screening. Breast cancer. Comparison is made to exams dated: 07/06/2020 mammogram - [facility], 01/29/2020 mammogram, 07/04/2019 mammogram, and 10/02/2018 mammogram - [facility]. The tissue of both breasts is heterogeneously dense. This may lower the sensitivity of mammography. Current study was also evaluated with a Computer Aided Detection (CAD) system. There are benign post operative findings in the left breast. No significant masses, calcifications, or other findings are seen in either breast. There has been no significant interval change. IMPRESSION: BENIGN There is no mammographic evidence of malignancy. A 1 year screening mammogram is recommended. This exam was interpreted at Station ID: [id number]. NOTE: For mammograms, a report in lay terms will be sent to the patient. Approximately 15% of breast malignancies will not be visualized mammographically. In the management of a palpable breast mass, a negative mammogram must not discourage biopsy of a clinically suspicious lesion. Electronically Signed By: Tomasz farrell/shaji:07/07/2021 11:19:39 copy to: Diana Cazares M.D., [facility] [employer], ph: [phone], fax: [phone] letter sent: Normal Exam ACR BI-RADS Category 2: Benign Finding(s) [id number]
== END ==
PROVIDERS: PCP Family Medicine; Referring Provider Internal Medicine; Visit Provider Internal Medicine
DX: Z12.31 Encounter for screening mammogram for malignant neoplasm of breast (principal); Z78.0 Asymptomatic menopausal state; C50.919 Malignant neoplasm of unspecified site of unspecified female breast; E07.9 Disorder of thyroid, unspecified; Z51.81 Encounter for therapeutic drug level monitoring; Z79.811 Long term (current) use of aromatase inhibitors
CPT/HCPCS: 77063; 77067; 77080

== ENCOUNTER → 2022-07-08 09:57 | Outpatient (CLI) | payer MEDICARE, OTHER, SELFPAY ==
--- NOTE | 2022-07-08 | DI.MG.S_ITS ---
BILATERAL DIGITAL SCREENING MAMMOGRAM 3D/2D WITH CAD: 07/08/2022 CLINICAL: Routine screening. Personal history of left breast cancer. Comparison is made to exams dated: 07/07/2021 mammogram, 07/06/2020 mammogram - [facility], and 01/29/2020 mammogram - [facility]. Both breasts are heterogeneously dense, which may obscure small masses (category c / 51-75% glandular tissue). Current study was also evaluated with a Computer Aided Detection (CAD) system. There are benign post operative findings in the left breast. No significant masses, calcifications, or other findings are seen in either breast. There has been no significant interval change. IMPRESSION: BENIGN There is no mammographic evidence of malignancy. A 1 year screening mammogram is recommended. This exam was interpreted at Station ID: [id number]. NOTE: For mammograms, a report in lay terms will be sent to the patient. Approximately 15% of breast malignancies will not be visualized mammographically. In the management of a palpable breast mass, a negative mammogram must not discourage biopsy of a clinically suspicious lesion. Electronically Signed By: Tato Silva M.D. acr/penrad:07/08/2022 10:28:04 copy to: Diana Cazares M.D., [facility] [employer], ph: [phone], fax: [phone] letter sent: Normal Exam ACR BI-RADS Category 2: Benign Finding(s) [id number]
== END ==
PROVIDERS: PCP Family Medicine; Referring Provider Family Medicine; Visit Provider Family Medicine
DX: Z12.31 Encounter for screening mammogram for malignant neoplasm of breast (principal); Z85.3 Personal history of malignant neoplasm of breast
CPT/HCPCS: 77063; 77067

== ENCOUNTER → 2022-08-22 09:10 | Outpatient (CLI) | payer MEDICARE, OTHER, SELFPAY ==
[2022-08-22 09:23] LABS: Add Manual Diff / Slide Review NO; Basophils Absolute Auto 100 /uL (0-100); Basophils Percent Auto 1.2 % (0-2); Eosinophils Absolute Auto 200 /uL (0-450); Eosinophils Percent Auto 3.6 % (2-4); Hematocrit 42.7 % (36-46); Hemoglobin 14.3 g/dL (12.0-16.0); Lymphocytes Absolute Auto 1000 /uL (1100-4500); Lymphocytes Percent Auto 20.2 % (25-40); Mean Corpuscular HGB Conc 33.6 % (30-36); Mean Corpuscular Hemoglobin 29.9 PG (26-34); Mean Corpuscular Volume 89.1 fL (80-100); Monocytes Absolute Auto 500 /uL (0-900); Monocytes Percent Auto 9.7 % (3-14); Neutrophils Absolute Auto 3300 /uL (1500-7000); Neutrophils Percent Auto 65.3 % (50-75); Platelet Count 283 X10^3/uL (150-400); Red Blood Cell Count 4.79 X10^6/uL (4.0-5.2); Red Cell Distribution Width 13.7 % (11.6-14.8)
[2022-08-22 09:35] LABS: Alanine Aminotransferase 26 IU/L (<35); Albumin 4.5 g/dL (3.5-5.0); Albumin Globulin Ratio 1.3 (1.0-2.8); Alkaline Phosphatase 77 U/L (38-126); Aspartate Aminotransferase 27 IU/L (14-36); Bilirubin Total 0.6 mg/dL (0.2-1.3); Blood Urea Nitrogen 15 mg/dL (7-17); Calcium 9.2 mg/dL (8.4-10.2); Carbon Dioxide 26 mmol/L (22-32); Chloride 103 mmol/L (98-107); Cholesterol 304 mg/dL (140-199); Estimated Glomerular Filt Rate > 60 mL/min (>60); Globulin 3.4 g/dL (1.7-4.1); Glucose 100 mg/dL (80-110); HDL Cholesterol 62 mg/dL (40-60); HEMOLYSIS 16 (0-50); LDL Cholesterol Calculated 205 mg/dL (<100); Potassium 4.2 mmol/L (3.4-5.1); Sodium 138 mmol/L (137-145); Total Protein 7.9 g/dL (6.3-8.2); Triglycerides 183 mg/dL (35-150)
[2022-08-22 10:10] LABS: TSH w/ Reflex to FT4 2.59 uIU/mL (0.47-4.68)
== END ==
PROVIDERS: Internal Medicine Medical Oncology; PCP Family Medicine; Referring Provider Family Medicine; Visit Provider Family Medicine
DX: C50.919 Malignant neoplasm of unspecified site of unspecified female breast (principal); E78.5 Hyperlipidemia, unspecified; E03.9 Hypothyroidism, unspecified
CPT/HCPCS: 36415; 80053; 80061; 84443; 85025

== ENCOUNTER 2023-01-28 15:14 | Observation (INO) | payer MEDICARE, OTHER, SELFPAY ==
[2023-01-28] VITALS (23 sets, daily range): BP systolic 134–208; BP diastolic 62–119; PULSE 66–85; RESP 11–26; TEMP 36.9; O2SAT 95–99; BMI 25.9
--- NOTE | 2023-01-28 15:22 | DI.RAD.S_ITS ---
PROCEDURE: XR CHEST 1V INDICATIONS: chest pain TECHNIQUE: One view of the chest was acquired. COMPARISON: None. FINDINGS: Surgical changes and devices: Surgical clips noted in the left breast Lungs and pleura: Lungs are clear. No pleural effusions or pneumothorax. Mediastinum: Mediastinal contours appear normal. Heart size is normal. Bones and chest wall: No suspicious bony lesions. Overlying soft tissues appear unremarkable. IMPRESSION: No acute cardiopulmonary findings Approved by: Hermes Colvin M.D. on 01/28/2023 at 15:22
--- NOTE | 2023-01-28 15:26 | ED_ITS ---
HPI - General Adult General Chief complaint: Chest Pain Stated complaint: Chest pain, fatigue, feeling exhausted Time Seen by Provider: 01/28/23 15:18 History of Present Illness HPI narrative: 72-year-old female nonsmoker with history of hyperlipidemia presents with her in the chief complaint of a sudden onset central sharp and stabbing chest pain that started about 30 minutes ago while at rest. She states that it seems to come and go without obvious provocation or palliation, when present at last 8-10 minutes and when it goes away it completely resolves. She denies dizziness or lightheadedness, she is no shortness of breath, cough, nausea or vomiting. Over the course of the day she also feels generally fatigued. She and her are in the process of moving in while exerting herself she does not report any recent history of change in exercise tolerance nor any episodes of dizziness, weakness, lightheadedness or shortness of breath nor chest pain with exertion. She does not have any known cardiac history. She denies recent travel, trauma or injury but does have history of breast cancer. She denies any lower extremity pain, swelling or redness. She has had no dysuria, frequency or urgency Related Data Home Medications Medication Instructions Recorded Confirmed ascorbic acid (vitamin C) 500 mg 500 mg PO DAILY ##0 09/30/16 01/17/23 tablet omega 2-bta-ygq-fish oil 1,000 mg 1 cap DAILY ##0 09/30/16 01/17/23 (120 mg-180 mg) capsule (Fish Oil) biotin 10 mg tablet 10 mg PO DAILY 03/27/18 01/17/23 calcium carbonate 500 mg calcium 1,000 mg PO DAILY 01/27/20 01/17/23 (1,250 mg) tablet lactobacillus combination no.9 4 4,000 mmu cells PO DAILY 01/27/20 01/17/23 billion cell capsule (Adult 50 Plus Probiotic) vitamin B complex 1 tab PO DAILY 01/27/20 01/17/23 [place] 2 cap DAILY 07/08/20 01/17/23 cholecalciferol (vitamin D3) 10 800 unit DAILY 07/08/20 01/17/23 mcg (400 unit) chewable tablet (Vitamin D3) coenzyme Q10 100 mg capsule 100 mg PO DAILY 07/08/20 01/17/23 (CoQ-10) melatonin 5 mg capsule 10 mg PRN PRN Insomnia 07/08/20 01/17/23 milk thistle 200 mg capsule 250 mg PO BID 07/08/20 01/17/23 red yeast rice 600 mg capsule 600 mg PO DAILY 01/17/23 01/17/23 valerian-passion 1 tab PO DAILY 01/17/23 01/17/23 qduub-ikgafg-mglhjs-hops-orange 65 mg-65 mg-65 mg tab (Relax and Sleep) Previous Rx's Medication Instructions Recorded letrozole 2.5 mg tablet 2.5 mg PO DAILY #30 tabs 09/08/22 levothyroxine 50 mcg tablet 50 mcg PO DAILY #90 tabs 09/16/22 Allergies Allergy/AdvReac Type Severity Reaction Status Date / Time Sulfa (Sulfonamide Allergy Mild Verified 08/31/22 09:24 Antibiotics) [SULFA (SULFONAMIDE ANTIBIOTICS)] nitrofurantoin AdvReac Severe Nausea, Verified 08/31/22 09:24 Stomach cramps Review of Systems Review of Systems Narrative: GENERAL: See HPI HEENT: Denies sinus pain, ear pain, sore throat, difficulty swallowing, dizziness. RESPIRATORY: Denies dyspnea, cough, wheezing, hemoptysis, sputum. CARDIOVASCULAR: See HPI GASTROINTESTINAL: Denies nausea, vomiting, abdominal pain, diarrhea, con stipation, melena. : Denies dysuria, frequency, incontinence, hematuria, urinary retention. MUSCULOSKELETAL: denies weakness, joint pain, or bony pain SKIN: Denies rash, skin lesions, or other NEUROLOGIC: Denies weakness, headache, numbness, change in speech, confusion, seizures, incoordination. PSYCHIATRIC: No concerning psychosocial issues. 12 point review of systems is negative except for those stated above Patient History Medical History Ankle pain (1996) Ankle sprain (1996) Breast cancer Chicken pox (1961) Colon polyps (2006) Diverticular disease (2006) Fibroids Frequent UTI (1977) Glaucoma (2011) HSV-1 (herpes simplex virus 1) infection (1953) Hyperlipidemia Hypothyroidism Infertility Measles (1959) Mumps (1959) Pinguecula (1991) Pterygium (1991) Rubella (1959) Scarlet fever (1958) Shingles (2010) Urethral cyst (2000) Surgical History Anesthesia History of colonoscopy with polypectomy (07/2013) History of urinary tract surgery (2000) Status post tonsillectomy and adenoidectomy (1959) Family History Father Heart disease Hypertension Aneurysm Mother Heart disease Hyperlipidemia Alzheimer's disease Dementia Sister Age: 59 Autoimmune hepatitis Sister Age: 72 Mental health problem Asperger's syndrome Grandfather Cancer Grandmother Cancer Grandfather Pneumonia Grandmother Stroke Social History marital status: household members: spouse pets and animals: Yes education level: college occupational status: employed leisure activities: art other: gardening seatbelt use: always water heater temp set < 120 deg: Yes working smoke detector in home: Yes fire extinguisher in home: Yes carbon monox detector in home: Yes Smoking Status: Never smoker second hand exposure: No alcohol intake: current substance use type: does not use during the past year weight has: remained stable well-balanced diet: daily or most days daily servings fruits/ve or more times/day caffeine: Yes eating out: 1-3 times/week Type(s) of exercise: walking and bicycling frequency: 3-4 times per week duration: 30-45 minutes/day Smoking Status: Never smoker alcohol intake frequency: 0-2 drinks per day Substance Use Type: does not use Exam Narrative Exam Narrative: GENERAL: [72] year old patient appears stated age. Well-developed patient, in mild distress. HEAD: Atraumatic. Normocephalic. EYES: Pupils equal round and reactive. Extraocular motions intact. No scleral icterus. No injection or drainage. ENT: Nose without bleeding, purulent drainage. Throat without erythema, tonsillar hypertrophy or exudate. Airway patent. NECK: Trachea midline. Non tender CARDIOVASCULAR: Regular rate and rhythm without murmurs, gallops, or rubs. RESPIRATORY: Clear to auscultation. Breath sounds equal bilaterally. No wheezes, rales, or rhonchi. GASTROINTESTINAL: Abdomen soft, non-tender, nondistended. EXTREMITIES: No edema or joint tenderness. BACK: Nontender without deformity or crepitance. No flank tenderness. NEURO: AOx3. SKIN: No rash or erythema of visible areas Initial Vital Signs Initial Vital Signs: Vital Signs Temperature 98.4 F 01/28/23 15:23 Pulse Rate 85 01/28/23 15:23 Respiratory Rate 16 01/28/23 15:23 Blood Pressure 208/91 H 01/28/23 15:23 Pulse Oximetry 98 01/28/23 15:23 Oxygen Delivery Method Room Air 01/28/23 15:23 Scores HEART Score Heart Score history: Moderately Suspicious Heart Score EKG: Non-Specific repolarization disturbance Heart Score Age: > or = 65 years old Heart Score risk factors: 1-2 risk factors Heart Score troponin: < or = to normal limit Heart Score Total: 5 Course Orders Ordered: ED Orders 01/28/23 15:17 Complete Blood Count AUTO DIFF Stat Comprehensive Metabolic Panel Stat D Dimer Stat Lipase Stat Magnesium Stat PTT Partial Thromboplastin Sachin Stat Prothrombin Time INR Stat Troponin & CK Cardiac Panel Stat 01/28/23 15:22 XR chest 1V Stat 01/28/23 15:25 EKG-12 Lead Stat 01/28/23 16:25 CT angio chest PE protocol Stat 01/28/23 17:32 EKG-12 Lead Stat Discontinued Medications Aspirin (Aspirin 81 Mg Chew Tab) 324 mg PO NOW ONE Stop: 01/28/23 15:23 Last Admin: 01/28/23 16:20 Dose: 324 mg Documented By: [facility] Vital Signs Vital signs: Vital Signs - 8 hr 01/28/23 15:23 01/28/23 15:29 01/28/23 15:30 Temperature 98.4 F Pulse Rate 85 75 75 Respiratory Rate 16 19 Blood Pressure 208/91 H Pulse Oximetry 98 98 98 Oxygen Delivery Method Room Air Room Air 01/28/23 16:00 01/28/23 16:00 01/28/23 16:30 Temperature Pulse Rate 68 Respiratory Rate 15 Blood Pressure 148/80 H 150/92 H Pulse Oximetry 97 Oxygen Delivery Method Room Air 01/28/23 16:30 Temperature Pulse Rate 69 Respiratory Rate 15 Blood Pressure Pulse Oximetry 97 Oxygen Delivery Method Room Air Medical Decision Making Lab Data 01/28/23 15:17 01/28/23 15:17 Labs: Lab Results 01/28/23 01/28/23 01/28/23 Range/Units 15:17 15:17 15:17 WBC 6.3 (4.5-11.0) X10^3/uL RBC 4.43 (4.0-5.2) X10^6/uL Hgb 13.8 (12.0-16.0) g/dL Hct 40.2 (36-46) % MCV 90.7 (80-100) fL MCH 31.1 (26-34) PG MCHC 34.3 (30-36) % RDW 13.5 (11.6-14.8) % Plt Count 311 (150-400) X10^3/uL Neut % (Auto) 62.5 (50-75) % Lymph % (Auto) 21.5 L (25-40) % [place] % (Auto) 11.1 (3-14) % Eos % (Auto) 3.7 (2-4) % Baso % (Auto) 1.2 (0-2) % Neut # (Auto) 3900 (4403-0461) /uL Lymph # (Auto) 1300 (1906-5477) /uL [place] # (Auto) 700 (0-900) /uL Eos # (Auto) 200 (0-450) /uL Baso # (Auto) 100 (0-100) /uL PT 11.6 (10.1-12.7) SECONDS INR 1.0 (0.9-1.3) APTT 31 (26-36) SECONDS D-Dimer (<500) ng/ml Sodium 137 (137-145) mmol/L Potassium 3.5 (3.4-5.1) mmol/L Chloride 101 (98-107) mmol/L Carbon Dioxide 29 (22-32) mmol/L BUN 14 (7-17) mg/dL Creatinine 0.82 (0.52-1.04) mg/dL Estimated GFR > 60 (>60) mL/min BUN/Creatinine Ratio 17.1 (6-22) Glucose 98 (80-110) mg/dL Calcium 9.3 (8.4-10.2) mg/dL Magnesium 2.2 (1.6-2.3) mg/dL Total Bilirubin 0.4 (0.2-1.3) mg/dL AST 27 (14-36) IU/L ALT 27 (<35) IU/L Alkaline Phosphatase 97 (38-126) U/L Total Creatine Kinase 157 H (30-135) U/L CK-MB (CK-2) TNP CK-MB (CK-2) Rel Index TNP Troponin I < 0.012 (0.01-0.034) ng/mL Total Protein 7.6 (6.3-8.2) g/dL Albumin 4.4 (3.5-5.0) g/dL Globulin 3.2 (1.7-4.1) g/dL Albumin/Globulin Ratio 1.4 (1.0-2.8) Lipase 218 (23-300) U/L 01/28/23 Range/Units 15:17 WBC (4.5-11.0) X10^3/uL RBC (4.0-5.2) X10^6/uL Hgb (12.0-16.0) g/dL Hct (36-46) % MCV (80-100) fL MCH (26-34) PG MCHC (30-36) % RDW (11.6-14.8) % Plt Count (150-400) X10^3/uL Neut % (Auto) (50-75) % Lymph % (Auto) (25-40) % [place] % (Auto) (3-14) % Eos % (Auto) (2-4) % Baso % (Auto) (0-2) % Neut # (Auto) (9541-2345) /uL Lymph # (Auto) (4994-5859) /uL [place] # (Auto) (0-900) /uL Eos # (Auto) (0-450) /uL Baso # (Auto) (0-100) /uL PT (10.1-12.7) SECONDS INR (0.9-1.3) APTT (26-36) SECONDS D-Dimer 716 H (<500) ng/ml Sodium (137-145) mmol/L Potassium (3.4-5.1) mmol/L Chloride (98-107) mmol/L Carbon Dioxide (22-32) mmol/L BUN (7-17) mg/dL Creatinine (0.52-1.04) mg/dL Estimated GFR (>60) mL/min BUN/Creatinine Ratio (6-22) Glucose (80-110) mg/dL Calcium (8.4-10.2) mg/dL Magnesium (1.6-2.3) mg/dL Total Bilirubin (0.2-1.3) mg/dL AST (14-36) IU/L ALT (<35) IU/L Alkaline Phosphatase (38-126) U/L Total Creatine Kinase (30-135) U/L CK-MB (CK-2) CK-MB (CK-2) Rel Index Troponin I (0.01-0.034) ng/mL Total Protein (6.3-8.2) g/dL Albumin (3.5-5.0) g/dL Globulin (1.7-4.1) g/dL Albumin/Globulin Ratio (1.0-2.8) Lipase (23-300) U/L ECG Data Interpretation: [1525 EKG is normal sinus rhythm rate [ 75] and free of any signs of ischemia or ectopy. No ST segmental elevation or depression. No T wave inversions MDM Narrative Medical decision making narrative: 72-year-old female with chest pain that developed while at rest, thankfully resolved, negative troponin. HEART Score 5. Pulmonary embolism considered given risk, D-dimer above age corrected cutoff and thankfully no evidence of PE on CT. Patient requires hospitalization for further workup. Discussed with Dr. Harmon and he agrees to take patient. Patient and understand and agree with the diagnosis and plan Discharge Plan Departure Patient Disposition: Admitted as Observation Clinical Impression: Chest pain Admit Date/Time: 01/28/23 18:31 Admit Provider: Alex Forrest
[2023-01-28 15:40] LABS: Add Manual Diff / Slide Review NO; Basophils Absolute Auto 100 /uL (0-100); Basophils Percent Auto 1.2 % (0-2); Eosinophils Absolute Auto 200 /uL (0-450); Eosinophils Percent Auto 3.7 % (2-4); Hematocrit 40.2 % (36-46); Hemoglobin 13.8 g/dL (12.0-16.0); Lymphocytes Absolute Auto 1300 /uL (1100-4500); Lymphocytes Percent Auto 21.5 % (25-40); Mean Corpuscular HGB Conc 34.3 % (30-36); Mean Corpuscular Hemoglobin 31.1 PG (26-34); Mean Corpuscular Volume 90.7 fL (80-100); Monocytes Absolute Auto 700 /uL (0-900); Monocytes Percent Auto 11.1 % (3-14); Neutrophils Absolute Auto 3900 /uL (1500-7000); Neutrophils Percent Auto 62.5 % (50-75); Platelet Count 311 X10^3/uL (150-400); Red Blood Cell Count 4.43 X10^6/uL (4.0-5.2); Red Cell Distribution Width 13.5 % (11.6-14.8); White Blood Cell Count 6.3 X10^3/uL (4.5-11.0)
[2023-01-28 15:46] LABS: Prothrombin Time 11.6 SECONDS (10.1-12.7)
[2023-01-28 15:49] LABS: PTT Partial Thromboplastin Tim 31 SECONDS (26-36)
[2023-01-28 15:51] LABS: Alanine Aminotransferase 27 IU/L (<35); Albumin 4.4 g/dL (3.5-5.0); Albumin Globulin Ratio 1.4 (1.0-2.8); Alkaline Phosphatase 97 U/L (38-126); Aspartate Aminotransferase 27 IU/L (14-36); BUN Creatinine Ratio 17.1 (6-22); Bilirubin Total 0.4 mg/dL (0.2-1.3); Blood Urea Nitrogen 14 mg/dL (7-17); Calcium 9.3 mg/dL (8.4-10.2); Carbon Dioxide 29 mmol/L (22-32); Chloride 101 mmol/L (98-107); Creatine Kinase 157 U/L (30-135); Estimated Glomerular Filt Rate > 60 mL/min (>60); Globulin 3.2 g/dL (1.7-4.1); Glucose 98 mg/dL (80-110); HEMOLYSIS < 15 (0-50); Lipase 218 U/L (23-300); Magnesium 2.2 mg/dL (1.6-2.3); Potassium 3.5 mmol/L (3.4-5.1); Sodium 137 mmol/L (137-145); Total Protein 7.6 g/dL (6.3-8.2)
[2023-01-28 15:56] LABS: D Dimer 716 ng/ml (<500)
[2023-01-28 16:02] LABS: Troponin I < 0.012 ng/mL (0.01-0.034)
[2023-01-28] MEDS: ASPIRIN 81 MG CHEW TAB 324 MG PO (16:20)
--- NOTE | 2023-01-28 16:25 | DI.CT.S_ITS ---
PROCEDURE: CT ANGIO CHEST PE PROTOCOL INDICATIONS: Chest Pain, SOB, elevated D Dimer, hx of CA TECHNIQUE: After the administration of intravenous contrast, 2 mm thick sections acquired from the pulmonary apices to the posterior costophrenic angles. MIP reformats of the arterial vasculature were utilized. For radiation dose reduction, the following was used: automated exposure control, adjustment of mA and/or kV according to patient size. COMPARISON: None. FINDINGS: Image quality: Excellent. Pulmonary arteries: Pulmonary arteries are normal in size, and demonstrate no intraluminal filling defects to suggest central pulmonary embolism. Lungs and pleura: Right lower lobe 6 mm nodule on image 5/69. Additional left upper lobe lingular 5 mm nodule on image 5/70. No pleural effusions or pneumothorax. Central and peripheral airways are patent. Mediastinum: Heart size is enlarged, without pericardial effusion. No mediastinal or hilar adenopathy. Thoracic aorta is normal in caliber and enhancement. Esophagus is normal in caliber, without hiatal hernia. Bones and chest wall: No suspicious bony lesions. Ribs and thoracic spine appear intact throughout. Thyroid gland unremarkable. No axillary or supraclavicular adenopathy. Surgical clips in the left axilla and left breast Abdomen: Visualized upper abdominal solid organs appear normal in the early arterial phase of enhancement. IMPRESSION: No evidence of pulmonary embolism, aortic dissection or aneurysm. Incidental right lower and left upper lobe pulmonary nodule measures 6 mm or less. Best practice guidelines suggest 12 month follow-up Approved by: Hermes Colvin M.D. on 01/28/2023 at 17:07
--- NOTE | 2023-01-28 20:46 | DI.ECHO.S_ITS ---
[facility]---------+ [facility] +---------+ : : [address] [place] : : : : [id number] : : : : Phone: [phone]+ Echocardiogram Report + + :Name: JACKELYN HENSON Study Date: 01/29/2023 Height: 65 in : :[facility] ReadingLocation: Weight: 156 lb : : Gender: Female BSA: 1.8 m2 : :: 1950 Age: 72 yrs BP: 162/84 mmHg: :Reason For Study: CHEST PAIN, R/O ACS : :Ordering Physician: JOSE, : :MARGIE Parr Performed By: Rosalie Car : :Referring: MARGIE GARCIA : + + Interpretation Summary The left ventricular cavity is small. The left ventricle is hyperdynamic. The ejection fraction is estimated to be 70-75%.There is no echo evidence for significant left ventricular outflow tract obstruction. The right ventricle is normal in size and function. Mild MR. The IVC is of normal diameter and collapses greater than 50% with a sniff. This suggests a low right atrial pressure of 3 mm Hg. There is mild luminal irregularity and echogenicity in the abdominal aorta, suggestive of aortic atherosclerotic disease. Procedure: A two-dimensional transthoracic echocardiogram with color flow and Doppler was performed. The study quality was technically adequate. There is no prior echocardiogram noted for this patient. The patient was in sinus rhythm with heart rates between 72-77 bpm during the exam. Left Ventricle: The left ventricular cavity is small. Proximal septal thickening is noted. There is no echo evidence for significant left ventricular outflow tract obstruction. There is no thrombus. The left ventricle is hyperdynamic. The ejection fraction is estimated to be 70-75%. There are no focal wall motion abnormalities. Diastolic parameters suggest a relaxation abnormality of the left ventricle, consistent with probable normal filling pressures. Right Ventricle: The right ventricle is normal in size and function. Atria: The left atrial size is normal. Right atrial size is normal. There is no Doppler evidence for an interatrial shunt. Mitral Valve: There is mild mitral annular calcification. There is mild mitral regurgitation. Aortic Valve: The aortic valve is trileaflet. The aortic valve opens well. There is no aortic valve stenosis. No aortic regurgitation is present. Tricuspid Valve: The tricuspid valve is normal in structure and function. Pulmonary artery pressures cannot be estimated because of the lack of a measurable TR jet velocity. There is trace tricuspid regurgitation. Pulmonic Valve: The pulmonic valve is not well visualized. There is no pulmonic valvular regurgitation. Great Vessels: The aortic root is normal size. The dimensions of the ascending aorta are normal. There is mild luminal irregularity and echogenicity in the abdominal aorta, suggestive of aortic atherosclerotic disease. The IVC is of normal diameter and collapses greater than 50% with a sniff. This suggests a low right atrial pressure of 3 mm Hg. Pericardium/ Pleura There is no pericardial effusion. There is no pleural effusion. MMode/2D Measurements & Calculations LVIDd: 3.8 cm LVOT diam: 2.0 cm LVIDs: 2.4 cm Ao root diam: 2.9 cm FS: 38.4 % asc Aorta Diam: 2.5 cm EPSS: 0.44 cm Ao Arch Diam (Prox Trans): 2.4 cm IVSd: 0.85 cm LVPWd: 0.82 cm LV cortes. diameter/BSA (cm/m^2): 2.2 LV sys. diameter/BSA (cm/m^2): 1.3 LA A2 area: 14.4 cm2 RA long axis: 4.4 cm LA A4 area: 13.6 cm2 RA area: 12.5 cm2 LA length (vol): 5.0 cm RA vol: 30.2 ml LA vol: 33.2 ml RA : 17.0 ml/m2 LA vol index: 18.7 ml/m2 IVC diam: 1.5 cm RVD1 (basal): 3.0 cm RVD2 (mid): 2.0 cm TAPSE: 1.7 cm Doppler Measurements & Calculations Ao V2 max: 139.1 cm/sec LVOT Max Duke: 116.2 cm/sec Ao V2 mean: 95.9 cm/sec LV V1 max P.4 mmHg Ao max P.7 mmHg LV V1 VTI: 23.0 cm Ao mean P.1 mmHg GARCIA(I,D): 2.5 cm2 Ao V2 VTI: 28.2 cm GARCIA(V,D): 2.6 cm2 sev ratio: 0.82 GARCIA indexed to BSA (cm^2/m^2): 1.4 MV E max duke: 70.9 cm/sec PA V2 max: 73.4 cm/sec MV A max duke: 95.7 cm/sec PA V2 mean: 54.5 cm/sec MV E/A: 0.74 PA mean P.3 mmHg Med Peak E' Duke: 5.7 cm/sec PA pr(Accel): 28.9 mmHg E/E' med: 12.4 Lat Peak E' Duke: 7.6 cm/sec E/E' lat: 9.3 E/e' average: 10.9 MV dec time: 0.21 sec SV(LVOT): 70.4 ml Reading Physician:12:22 PM
--- NOTE | 2023-01-28 20:47 | PM.HP.1 ---
History of Present Illness History of Present Illness Date Patient Seen: 01/28/23 Time Patient Seen: 20:10 Chief complaint: Chest pain, fatigue, feeling exhausted Narrative: cc: chest pain Patient presented to ED with complaint of sudden stabbing chest pain while sitting in car driving home from [place] today with . Had just had a regular chicken caesar salad. She is in the process of moving so has been hucking and hauling boxes a fair amount. Reports she had two brief <5min episodes of chest pain today that came and went suddenly at rest - has felt fine since getting to the ED. Initial cardiac workup was negative. 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) Hyperlipidemia Hypothyroidism Infertility Measles (1959) Mumps (1959) Pinguecula (1991) Pterygium (1991) Rubella (1959) Scarlet fever (1958) Shingles (2010) Urethral cyst (2000) Surgical History Anesthesia History of colonoscopy with polypectomy (07/2013) History of urinary tract surgery (2000) Status post tonsillectomy and adenoidectomy (1959) Family History Father Heart disease Hypertension Aneurysm Mother Heart disease Hyperlipidemia Alzheimer's disease Dementia Sister Age: 59 Autoimmune hepatitis Sister Age: 72 Mental health problem Asperger's syndrome Grandfather Cancer Grandmother Cancer Grandfather Pneumonia Grandmother Stroke Social History marital status: household members: spouse pets and animals: Yes education level: college occupational status: employed leisure activities: art other: gardening seatbelt use: always water heater temp set < 120 deg: Yes working smoke detector in home: Yes fire extinguisher in home: Yes carbon monox detector in home: Yes Smoking Status: Never smoker second hand exposure: No alcohol intake: current substance use type: does not use during the past year weight has: remained stable well-balanced diet: daily or most days daily servings fruits/ve or more times/day caffeine: Yes eating out: 1-3 times/week Type(s) of exercise: walking and bicycling frequency: 3-4 times per week duration: 30-45 minutes/day Meds Home Medications and Allergies Home Medications Medication Instructions Recorded Confirmed Type ascorbic acid (vitamin C) 500 mg 500 mg PO DAILY ##0 09/30/16 01/17/23 History tablet omega 4-qqf-xug-fish oil 1,000 mg 1 cap DAILY ##0 09/30/16 01/17/23 History (120 mg-180 mg) capsule (Fish Oil) biotin 10 mg tablet 10 mg PO DAILY 03/27/18 01/17/23 History calcium carbonate 500 mg calcium 1,000 mg PO DAILY 01/27/20 01/17/23 History (1,250 mg) tablet lactobacillus combination no.9 4 4,000 mmu cells PO DAILY 01/27/20 01/17/23 History billion cell capsule (Adult 50 Plus Probiotic) vitamin B complex 1 tab PO DAILY 01/27/20 01/17/23 History [place] 2 cap DAILY 07/08/20 01/17/23 History cholecalciferol (vitamin D3) 10 800 unit DAILY 07/08/20 01/17/23 History mcg (400 unit) chewable tablet (Vitamin D3) coenzyme Q10 100 mg capsule 100 mg PO DAILY 07/08/20 01/17/23 History (CoQ-10) melatonin 5 mg capsule 10 mg PRN PRN Insomnia 07/08/20 01/17/23 History milk thistle 200 mg capsule 250 mg PO BID 07/08/20 01/17/23 History letrozole 2.5 mg tablet 2.5 mg PO DAILY #30 tabs 09/08/22 Rx levothyroxine 50 mcg tablet 50 mcg PO DAILY #90 tabs 09/16/22 01/17/23 Rx red yeast rice 600 mg capsule 600 mg PO DAILY 01/17/23 01/17/23 History valerian-passion 1 tab PO DAILY 01/17/23 01/17/23 History tzzjs-jfcrms-ysltju-hops-orange 65 mg-65 mg-65 mg tab (Relax and Sleep) Allergies Allergy/AdvReac Type Severity Reaction Status Date / Time Sulfa (Sulfonamide Allergy Mild Verified 08/31/22 09:24 Antibiotics) [SULFA (SULFONAMIDE ANTIBIOTICS)] nitrofurantoin AdvReac Severe Nausea, Verified 08/31/22 09:24 Stomach cramps Review of Systems Review of Systems Narrative: all systems reviewed and negative except as otherwise documented in HPI Exam Vital Signs (past 8 hours): - 01/28/23 15:23 01/28/23 15:29 01/28/23 15:30 Temperature 98.4 F Pulse Rate 85 75 75 Respiratory Rate 16 19 Blood Pressure 208/91 H Pulse Oximetry 98 98 98 Oxygen Delivery Method Room Air Room Air 01/28/23 16:00 01/28/23 16:00 01/28/23 16:30 Temperature Pulse Rate 68 Respiratory Rate 15 Blood Pressure 148/80 H 150/92 H Pulse Oximetry 97 Oxygen Delivery Method Room Air 01/28/23 16:30 01/28/23 17:00 01/28/23 17:30 Temperature Pulse Rate 69 74 75 Respiratory Rate 15 20 23 Blood Pressure Pulse Oximetry 97 96 97 Oxygen Delivery Method Room Air 01/28/23 18:00 01/28/23 18:11 01/28/23 18:11 Temperature Pulse Rate 71 77 Respiratory Rate 19 26 H Blood Pressure 203/111 H Pulse Oximetry 96 98 Oxygen Delivery Method Room Air 01/28/23 18:16 01/28/23 18:16 01/28/23 18:30 Temperature Pulse Rate 77 Respiratory Rate 26 H Blood Pressure 198/103 H 187/96 H Pulse Oximetry 97 Oxygen Delivery Method 01/28/23 18:30 01/28/23 19:00 01/28/23 19:00 Temperature Pulse Rate 81 74 Respiratory Rate 20 Blood Pressure 180/105 H Pulse Oximetry 97 97 Oxygen Delivery Method Room Air Room Air 01/28/23 19:26 01/28/23 19:26 01/28/23 19:30 Temperature Pulse Rate 75 Respiratory Rate 24 Blood Pressure 168/89 H 158/77 H Pulse Oximetry 98 Oxygen Delivery Method 01/28/23 19:30 01/28/23 20:00 01/28/23 20:00 Temperature Pulse Rate 70 66 Respiratory Rate 16 11 L Blood Pressure 155/81 H Pulse Oximetry 95 97 Oxygen Delivery Method Room Air Room Air Oxygen Delivery Method Room Air Narrative Exam Narrative: pleasant elder laying on gurney [facility]: cooperative, healthy appearing, comfortable, well developed and well groomed [facility] Head: normocephalic and atraumatic Eyes General: appearance normal, both eyes and all related structures Chest Chest: No localized rib tenderness with anteroposterior compression Other: no TTP Resp Auscultation: clear to auscultation bilaterally Cardio Rate: regular rate Rhythm: regular rhythm Heart Sounds: S1 normal and S2 normal GI Palpation: No tender Auscultation: normal bowel sounds Neuro General: patient alert, patient awake, patient oriented x3, moves all extremities and CN's II-XI intact bilaterally Extrem General: no pedal edema Psych Speech and Movement: speech and movement normal Objective Labs 01/28/23 15:17 01/28/23 15:17 Labs: Laboratory Results - last 24 hr 01/28/23 01/28/23 01/28/23 15:17 15:17 15:17 WBC 6.3 RBC 4.43 Hgb 13.8 Hct 40.2 MCV 90.7 MCH 31.1 MCHC 34.3 RDW 13.5 Plt Count 311 Neut % (Auto) 62.5 Lymph % (Auto) 21.5 L [place] % (Auto) 11.1 Eos % (Auto) 3.7 Baso % (Auto) 1.2 Neut # (Auto) 3900 Lymph # (Auto) 1300 [place] # (Auto) 700 Eos # (Auto) 200 Baso # (Auto) 100 PT 11.6 INR 1.0 APTT 31 D-Dimer Sodium 137 Potassium 3.5 Chloride 101 Carbon Dioxide 29 BUN 14 Creatinine 0.82 Estimated GFR > 60 BUN/Creatinine Ratio 17.1 Glucose 98 Calcium 9.3 Magnesium 2.2 Total Bilirubin 0.4 AST 27 ALT 27 Alkaline Phosphatase 97 Total Creatine Kinase 157 H CK-MB (CK-2) TNP CK-MB (CK-2) Rel Index TNP Troponin I < 0.012 Total Protein 7.6 Albumin 4.4 Globulin 3.2 Albumin/Globulin Ratio 1.4 Lipase 218 01/28/23 15:17 WBC RBC Hgb Hct MCV MCH MCHC RDW Plt Count Neut % (Auto) Lymph % (Auto) [place] % (Auto) Eos % (Auto) Baso % (Auto) Neut # (Auto) Lymph # (Auto) [place] # (Auto) Eos # (Auto) Baso # (Auto) PT INR APTT D-Dimer 716 H Sodium Potassium Chloride Carbon Dioxide BUN Creatinine Estimated GFR BUN/Creatinine Ratio Glucose Calcium Magnesium Total Bilirubin AST ALT Alkaline Phosphatase Total Creatine Kinase CK-MB (CK-2) CK-MB (CK-2) Rel Index Troponin I Total Protein Albumin Globulin Albumin/Globulin Ratio Lipase Assessment & Plan Assessment & Plan narrative: #chest pain rule out ACS feeling fine at present will get morning troponins and labs - continue quality assurance monitor final - ordering echo #hypothyroid stable continue home levothyroxine 50 #hx of breast cancer 4 years out - follows with Dr. Schuler - continue letrozole #hyperlipidemia I've been trying to avoid statins taking red yeast rice thinks the letrozole has been driving up her numbers #family history of [place] Pt reports both her parents had MIs around age 65 dispo: Admit obs for cardiac workup PCP: Debora allergies: sulfa, nitrofurantoin code: full MDM: [place] [phone] time spent: 65 min
[2023-01-29] VITALS (20 sets, daily range): BP systolic 137–162; BP diastolic 81–90; PULSE 60–93; RESP 12–22; TEMP 36.6–36.9; O2SAT 97–98; BMI 25.9
[2023-01-29 04:13] LABS: Add Manual Diff / Slide Review NO; Basophils Absolute Auto 100 /uL (0-100); Basophils Percent Auto 1.4 % (0-2); Eosinophils Absolute Auto 300 /uL (0-450); Eosinophils Percent Auto 5.4 % (2-4); Hematocrit 41.6 % (36-46); Lymphocytes Absolute Auto 1300 /uL (1100-4500); Lymphocytes Percent Auto 21.8 % (25-40); Mean Corpuscular HGB Conc 33.6 % (30-36); Mean Corpuscular Hemoglobin 30.7 PG (26-34); Mean Corpuscular Volume 91.4 fL (80-100); Monocytes Absolute Auto 700 /uL (0-900); Monocytes Percent Auto 11.3 % (3-14); Neutrophils Absolute Auto 3600 /uL (1500-7000); Neutrophils Percent Auto 60.1 % (50-75); Platelet Count 287 X10^3/uL (150-400); Red Blood Cell Count 4.56 X10^6/uL (4.0-5.2); Red Cell Distribution Width 13.5 % (11.6-14.8)
[2023-01-29 04:25] LABS: Alanine Aminotransferase 25 IU/L (<35); Albumin 4.2 g/dL (3.5-5.0); Albumin Globulin Ratio 1.4 (1.0-2.8); Alkaline Phosphatase 73 U/L (38-126); Aspartate Aminotransferase 26 IU/L (14-36); BUN Creatinine Ratio 17.1 (6-22); Bilirubin Total 0.7 mg/dL (0.2-1.3); Blood Urea Nitrogen 13 mg/dL (7-17); Calcium 9.1 mg/dL (8.4-10.2); Carbon Dioxide 29 mmol/L (22-32); Chloride 104 mmol/L (98-107); Estimated Glomerular Filt Rate > 60 mL/min (>60); Glucose 93 mg/dL (80-110); HEMOLYSIS < 15 (0-50); Potassium 3.6 mmol/L (3.4-5.1); Sodium 141 mmol/L (137-145); Total Protein 7.2 g/dL (6.3-8.2)
[2023-01-29 04:36] LABS: Troponin I < 0.012 ng/mL (0.01-0.034)
[2023-01-29] MEDS: LEVOTHYROXINE 50 MCG TABLET PO (07:56)
[2023-01-29] MEDS: ENOXAPARIN 40 MG/0.4 ML SYRINGE SUBCUT (09:41)
[2023-01-29] MEDS: LETROZOLE 2.5 MG TABLET PO (09:41)
--- NOTE | 2023-01-29 11:50 | P.DS_ITS ---
History of Present Illness History of Present Illness Date Patient Seen: 01/29/23 Time Patient Seen: 11:50 Date of Onset of Symptoms: 01/28/23 Chief complaint: Chest pain, fatigue, feeling exhausted Narrative: cc: chest pain Feeling okay today no further chest pain since presentation eating ambulating going to the bathroom fine able to get echocardiogram and troponins negative Discharge Providers Provider Date of admission: 01/28/23 18:31 Discharge Date: 01/29/23 Primary care physician: Diana Cazares MD Discharge provider: Alex Forrest MD Summary Hospital Course Discharge Diagnosis: #chest pain rule out ACS #hypothyroidism #hx of breast cancer #hyperlipidemia #family history of [place] Hospital Course: Patient presented to ED with complaint of sudden stabbing chest pain while sitting in car driving home from [place] today with . Had just had a r egular chicken caesar salad. She is in the process of moving so has been hucking and hauling boxes a fair amount. Reports she had two brief <5min episodes of chest pain today that came and went suddenly at rest - has felt fine since getting to the ED. Initial cardiac workup was negative. secured entrance monitor and a.m. tropnins were negative. Echocardiogram was obtained. [place] ok to go home and f/u as outpt. Status at Discharge Cognitive/behavioral status at discharge: at baseline, oriented Functional status at discharge: independent ambulation Overall status at discharge: patient is back to baseline Exam Vital Signs (past 8 hours): - 01/29/23 04:00 01/29/23 04:30 01/29/23 05:00 Temperature Pulse Rate 85 93 H 68 Respiratory Rate 15 16 14 Blood Pressure Pulse Oximetry Oxygen Flow Rate 01/29/23 05:30 01/29/23 06:00 01/29/23 06:30 Temperature Pulse Rate 69 60 61 Respiratory Rate 14 13 22 Blood Pressure Pulse Oximetry Oxygen Flow Rate 01/29/23 07:00 01/29/23 07:30 01/29/23 08:00 Temperature Pulse Rate 70 68 74 Respiratory Rate 13 12 20 Blood Pressure Pulse Oximetry Oxygen Flow Rate 01/29/23 08:14 01/29/23 08:14 01/29/23 11:05 Temperature 98.0 F 97.8 F Pulse Rate 76 90 Respiratory Rate 22 18 Blood Pressure 162/84 H 145/81 H Pulse Oximetry 97 98 Oxygen Flow Rate 0 Oxygen Delivery Method Room Air Oxygen Flow Rate 0 Narrative Exam Narrative: Pleasant elder lying in hospital bed HENMT Head: normocephalic and atraumatic Resp Other: Clear to auscultation bilaterally Cardio Other: Regular rate and rhythm S1-S2 no murmurs rubs or gallops GI Other: Normal bowel sounds soft nontender Neuro General: patient alert, patient awake, patient oriented x3, tone normal and moves all extremities Extrem General: no pedal edema Psych Speech and Movement: speech and movement normal Objective Labs 01/29/23 03:55 01/29/23 03:55 Labs: Laboratory Results - last 24 hr 01/28/23 01/28/23 01/28/23 15:17 15:17 15:17 WBC 6.3 RBC 4.43 Hgb 13.8 Hct 40.2 MCV 90.7 MCH 31.1 MCHC 34.3 RDW 13.5 Plt Count 311 Neut % (Auto) 62.5 Lymph % (Auto) 21.5 L [place] % (Auto) 11.1 Eos % (Auto) 3.7 Baso % (Auto) 1.2 Neut # (Auto) 3900 Lymph # (Auto) 1300 [place] # (Auto) 700 Eos # (Auto) 200 Baso # (Auto) 100 PT 11.6 INR 1.0 APTT 31 D-Dimer Sodium 137 Potassium 3.5 Chloride 101 Carbon Dioxide 29 BUN 14 Creatinine 0.82 Estimated GFR > 60 BUN/Creatinine Ratio 17.1 Glucose 98 Calcium 9.3 Magnesium 2.2 Total Bilirubin 0.4 AST 27 ALT 27 Alkaline Phosphatase 97 Total Creatine Kinase 157 H CK-MB (CK-2) TNP CK-MB (CK-2) Rel Index TNP Troponin I < 0.012 Total Protein 7.6 Albumin 4.4 Globulin 3.2 Albumin/Globulin Ratio 1.4 Lipase 218 01/28/23 01/29/23 01/29/23 15:17 03:55 03:55 WBC 6.0 RBC 4.56 Hgb 14.0 Hct 41.6 MCV 91.4 MCH 30.7 MCHC 33.6 RDW 13.5 Plt Count 287 Neut % (Auto) 60.1 Lymph % (Auto) 21.8 L [place] % (Auto) 11.3 Eos % (Auto) 5.4 H Baso % (Auto) 1.4 Neut # (Auto) 3600 Lymph # (Auto) 1300 [place] # (Auto) 700 Eos # (Auto) 300 Baso # (Auto) 100 PT INR APTT D-Dimer 716 H Sodium 141 Potassium 3.6 Chloride 104 Carbon Dioxide 29 BUN 13 Creatinine 0.76 Estimated GFR > 60 BUN/Creatinine Ratio 17.1 Glucose 93 Calcium 9.1 Magnesium Total Bilirubin 0.7 AST 26 ALT 25 Alkaline Phosphatase 73 Total Creatine Kinase CK-MB (CK-2) CK-MB (CK-2) Rel Index Troponin I < 0.012 Total Protein 7.2 Albumin 4.2 Globulin 3.0 Albumin/Globulin Ratio 1.4 Lipase [facility] Medical History Ankle pain (1996) Ankle sprain (1996) Breast cancer Chicken pox (1961) Colon polyps (2006) Diverticular disease (2006) Fibroids Frequent UTI (1977) Glaucoma (2011) HSV-1 (herpes simplex virus 1) infection (1953) Hyperlipidemia Hypothyroidism Infertility Measles (1959) Mumps (1959) Pinguecula (1991) Pterygium (1991) Rubella (1959) Scarlet fever (1958) Shingles (2010) Urethral cyst (2000) Surgical History Anesthesia History of colonoscopy with polypectomy (07/2013) History of urinary tract surgery (2000) Status post tonsillectomy and adenoidectomy (1959) Family History Father Heart disease Hypertension Aneurysm Mother Heart disease Hyperlipidemia Alzheimer's disease Dementia Sister Age: 59 Autoimmune hepatitis Sister Age: 72 Mental health problem Asperger's syndrome Grandfather Cancer Grandmother Cancer Grandfather Pneumonia Grandmother Stroke Social History marital status: household members: spouse pets and animals: Yes education level: college occupational status: employed leisure activities: art other: gardening seatbelt use: always water heater temp set < 120 deg: Yes working smoke detector in home: Yes fire extinguisher in home: Yes carbon monox detector in home: Yes Smoking Status: Never smoker second hand exposure: No alcohol intake: current substance use type: does not use during the past year weight has: remained stable well-balanced diet: daily or most days daily servings fruits/ve or more times/day caffeine: Yes eating out: 1-3 times/week Type(s) of exercise: walking and bicycling frequency: 3-4 times per week duration: 30-45 minutes/day Discharge Assessment & Plan Assessment and Plan Assessment: #chest pain rule out ACS monitor and cardiac markers unremarkable overnight, echocardiogram obtained pending read may need stress test as outpatient Discussed up to her continuing a 81 mg aspirin and omeprazole [id number] until she follows up with outpatient PCP #hypothyroid stable continue home levothyroxine 50 #hx of breast cancer 4 years out - follows with Dr. Schuler - continue letrozole #hyperlipidemia I've been trying to avoid statins taking red yeast rice thinks the letrozole has been driving up her numbers advised she continue that #family history of [place] Pt reports both her parents had MIs around age 65 dispo: Discharge home to follow-up as outpatient PCP: Debora allergies: sulfa, nitrofurantoin code: full MDM: [place] [phone] time spent: 40 min Discharge Plan Discharge Plan Patient Disposition: Home Discharge orders & Medications Prescriptions: Continued ascorbic acid (vitamin C) 500 MG tablet 500 mg PO DAILY Qty: 0 omega 4-nsu-qte-fish oil [Fish Oil] 1,000 MG capsule 1 cap DAILY Qty: 0 Adult 50 Plus Probiotic 4 billion cell capsule 4,000 mmu cells PO DAILY Rx Instructions: administer with a meal vitamin B complex Tablet 1 tab PO DAILY calcium carbonate 500 mg calcium (1,250 mg) tablet 1,000 mg PO DAILY levothyroxine 50 mcg tablet 50 mcg PO DAILY Qty: 90 3RF Rx Instructions: Take one tablet once daily for thyroid replacement biotin 10 mg tablet 10 mg PO DAILY milk thistle 200 mg Capsule 250 mg PO BID coenzyme Q10 [CoQ-10] 100 mg Capsule 100 mg PO DAILY cholecalciferol (vitamin D3) [Vitamin D3] 10 mcg (400 unit) Tablet,Chewable 800 unit DAILY melatonin 5 mg Capsule 10 mg PRN PRN (Reason: Insomnia) [place] 2 cap DAILY letrozole 2.5 mg tablet 2.5 mg PO DAILY Qty: 30 11RF Rx Instructions: 2.5 mg PO daily red yeast rice 600 mg Capsule 600 mg PO DAILY Rx Instructions: give with meal/snack Follow up/Referrals: Diana Cazares MD [Primary Care Provider] - Diet/Activity/Treatments Diet: Diet as Tolerated Visit Report/Discharge Packet Stand Alone Forms: Patient Portal/API, Stroke Signs & Symptoms Discharge Data Primary Care Provider: Diana Cazares Attending Provider: Alex Forrest Date/Time: 01/28/23 18:31
--- NOTE | 2023-01-29 12:15 | PC.NURSE ---
Admit note: Patient admitted to room 212, ambulated independently in room. Tele and SCDs initiated. No C/O chest pain. VSS. Dr. Forrest at bedside. ECHO to follow. Oriented to room, environment, and plan of care. Call light within reach.
--- NOTE | 2023-01-29 16:18 | PC.NURSE ---
1525 Discharge note: Patient discharge home per MD order, f/u with Dr. Cazares. Verbalized understanding of discharge instructions. Home via private vehicle, accompanied by spouse.
== END 2023-01-29 16:20 | disposition home or self-care (01) ==
LOC: ED 15:18 → AC 18:32
PROVIDERS: Admitting Provider Family Medicine; Emergency Provider Family Medicine; PCP Family Medicine; Referring Provider Emergency Medicine; Visit Provider Family Medicine
DX: R07.9 Chest pain, unspecified (principal); E03.9 Hypothyroidism, unspecified; E78.5 Hyperlipidemia, unspecified; Z85.3 Personal history of malignant neoplasm of breast
CPT/HCPCS: 36415; 71045; 71275; 80053; 82550; 83690; 83735; 84484; 85025; 85379; 85610; 85730; 93005; 93010; 93306; 96372; 99284; G0378; J1650

== ENCOUNTER → 2023-03-14 09:10 | Outpatient (CLI) | payer MEDICARE, OTHER, SELFPAY ==
[2023-01-29 10:49] VITALS: BMI 25.9
[2023-03-14 10:36] LABS: Cholesterol 246 mg/dL (140-199); HDL Cholesterol 66 mg/dL (40-60); LDL Cholesterol Calculated 154 mg/dL (<100); Triglycerides 131 mg/dL (35-150)
== END ==
PROVIDERS: PCP Family Medicine; Referring Provider Physician Assistant; Visit Provider Physician Assistant
DX: E78.5 Hyperlipidemia, unspecified (principal)
CPT/HCPCS: 36415; 80061

== ENCOUNTER → 2023-03-23 09:40 | Outpatient (CLI) | payer MEDICARE, OTHER, SELFPAY ==
[2023-01-29 10:49] VITALS: BMI 25.9
--- NOTE | 2023-03-23 21:02 | DI.NM.S_ITS ---
DATE OF SERVICE: 03/23/2023 PROCEDURE: Exercise perfusion study. INDICATIONS: Chest pain with underlying hyperlipidemia. RADIOPHARMACEUTICAL: 25.2 mCi technetium-99m Myoview IV was injected at stress and 11.5 mCi technetium-99m Myoview IV was injected at rest. CARDIAC STRESS: Patient underwent exercise perfusion study under the supervision of an attending staff. Patient walked on Santos protocol for 7 minutes. Achieved maximum heart rate of 142, which was 95% of target heart rate. Normal blood pressure response. Resting blood pressure 120/78 mmHg. Peak blood pressure 150/85 mmHg. THIEN -22%. Achieved 7 METs of workload. Baseline rhythm was sinus. During stress, no convincing ischemic changes seen. Rare PVCs. No chest pain. Patient felt fatigue and some dyspnea. RAW DATA: Adequate myocardial uptake. GATED STUDY: Stress LV ejection fraction 93% and resting LV ejection fraction 89%. Resting end-diastolic volume 54 mL. TID ratio 1.04, which is within normal limits. Lung/heart ratio 0.25, which is within normal limits. MYOCARDIAL PERFUSION SCAN: Stress supine, resting supine and stress prone images were compared to each other. Stress supine images revealed minimally decreased perfusion of distal anterior wall and distal anterior septum, which resolved during stress prone images, suggestive of breast tissue attenuation artifact. No convincing ischemia or infarction. CONCLUSION: This is a normal myocardial perfusion study with slight breast tissue attenuation artifact, which resolved during stress prone images. Good exercise tolerance. Normal hemodynamic response. No ischemic EKG changes. No complex arrhythmias. No anginal symptoms. Calculated LV ejection fraction is high likely due to low end-diastolic volume. Overall, low-risk myocardial perfusion scan. Monae Reagan - [employer]/crow/ doc#: [id number]/job#: [id number] dd: 03/23/2023 16:59:00 dt: 03/23/2023 20:41:00 DICTATING MD/COPIES TO: Martha Calloway MD COPIES MNE: SIMONE;
== END ==
PROVIDERS: PCP Family Medicine; Referring Provider Physician Assistant; Visit Provider Physician Assistant
DX: R07.9 Chest pain, unspecified (principal); E78.5 Hyperlipidemia, unspecified
CPT/HCPCS: 78452; 93017; A9502

== ENCOUNTER → 2023-04-27 13:10 | Outpatient (CLI) | payer MEDICARE, OTHER, SELFPAY ==
[2023-01-29 10:49] VITALS: BMI 25.9
--- NOTE | 2023-04-27 13:12 | DI.US.S_ITS ---
PROCEDURE: US SOFT TISSUE HEAD AND NECK INDICATIONS: ENLARGED LYMPH NODE RIGHT SIDE; HISTORY BREAST CANCER LEFT TECHNIQUE: Real-time scanning was performed of the neck region of interest, with image documentation. COMPARISON: None. FINDINGS: At the area of interest, there is a normal appearing lymph node with appropriate vascularity and fatty laquita measuring 1.8 x 0.5 x 0.9 cm. The right submandibular gland is also noted in the region measuring 2.3 x 1.1 x 3.1 cm. IMPRESSION: Unremarkable soft tissue ultrasound. Normal appearing lymph node and submandibular gland. Approved by: Hermes Colvin M.D. on 04/27/2023 at 16:47
== END ==
PROVIDERS: PCP Family Medicine; Referring Provider Physician Assistant; Visit Provider Physician Assistant
DX: R59.0 Localized enlarged lymph nodes (principal)
CPT/HCPCS: 76536

== ENCOUNTER → 2023-06-26 12:45 | Outpatient (CLI) | payer MEDICARE, OTHER, SELFPAY ==
[2023-01-29 10:49] VITALS: BMI 25.9
--- NOTE | 2023-06-26 12:48 | DI.US.S_ITS ---
PROCEDURE: US SOFT TISSUE HEAD AND NECK INDICATIONS: LYMPHADENOPATHY TECHNIQUE: Real-time scanning was performed of the neck region of interest, with image documentation. COMPARISON: [facility], , US SOFT TISSUE HEAD AND NECK, 04/27/2023, 13:38. FINDINGS: The right submandibular lymph node measures 1.6 x 0.4 x 1.0 centimeters, previously 1.8 x 0.5 x 0.9 centimeter. This node maintains a normal reniform shape and fatty hilum. Bilateral submandibular glands are unremarkable. IMPRESSION: Mild interval decrease in size of the right submandibular station lymph node. This maintains a normal reniform shape and fatty hilum, suggestive of a benign etiology. Consider follow-up in 6 months to establish stability. Dictated by: Magnus Jose M.D. on 06/26/2023 at 16:01 Approved by: Magnus Jose M.D. on 06/26/2023 at 16:02
== END ==
PROVIDERS: PCP Family Medicine; Referring Provider Family Medicine; Visit Provider Family Medicine
DX: R59.1 Generalized enlarged lymph nodes (principal)
CPT/HCPCS: 76536

== ENCOUNTER → 2023-06-28 15:00 | Outpatient (CLI) | payer MEDICARE, OTHER, SELFPAY ==
[2023-01-29 10:49] VITALS: BMI 25.9
[2023-06-28 15:33] LABS: Add Manual Diff / Slide Review NO; Basophils Absolute Auto 100 /uL (0-100); Basophils Percent Auto 1.1 % (0-2); Eosinophils Absolute Auto 300 /uL (0-450); Eosinophils Percent Auto 4.4 % (2-4); Hematocrit 40.2 % (36-46); Hemoglobin 13.7 g/dL (12.0-16.0); Lymphocytes Absolute Auto 1400 /uL (1100-4500); Lymphocytes Percent Auto 23.3 % (25-40); Mean Corpuscular HGB Conc 34.2 % (30-36); Mean Corpuscular Hemoglobin 30.8 PG (26-34); Mean Corpuscular Volume 90.2 fL (80-100); Monocytes Absolute Auto 500 /uL (0-900); Monocytes Percent Auto 8.7 % (3-14); Neutrophils Absolute Auto 3800 /uL (1500-7000); Neutrophils Percent Auto 62.5 % (50-75); Platelet Count 285 X10^3/uL (150-400); Red Blood Cell Count 4.46 X10^6/uL (4.0-5.2); Red Cell Distribution Width 13.2 % (11.6-14.8)
== END ==
PROVIDERS: PCP Family Medicine; Referring Provider Family Medicine; Visit Provider Family Medicine
DX: R59.1 Generalized enlarged lymph nodes (principal)
CPT/HCPCS: 36415; 85025

== ENCOUNTER → 2023-07-19 16:08 | Outpatient (CLI) | payer MEDICARE, OTHER, SELFPAY ==
[2023-01-29 10:49] VITALS: BMI 25.9
--- NOTE | 2023-07-19 16:09 | DI.MG.S_ITS ---
BILATERAL DIGITAL SCREENING MAMMOGRAM 3D/2D WITH CAD POST LUMPECTOMY: 07/19/2023 CLINICAL: Routine screening. Personal history of left breast cancer. Comparison is made to exams dated: 07/08/2022 mammogram, 07/07/2021 mammogram, and 07/06/2020 mammogram - [facility]. Both breasts are heterogeneously dense, which may obscure small masses (category c / 51-75% glandular tissue). Current study was also evaluated with a Computer Aided Detection (CAD) system. There are benign post operative findings in the left breast. No significant masses, calcifications, or other findings are seen in either breast. There has been no significant interval change. IMPRESSION: BENIGN There is no mammographic evidence of malignancy. A 1 year screening mammogram is recommended. This exam was interpreted at Station ID: [id number]. NOTE: For mammograms, a report in lay terms will be sent to the patient. Approximately 15% of breast malignancies will not be visualized mammographically. In the management of a palpable breast mass, a negative mammogram must not discourage biopsy of a clinically suspicious lesion. Electronically Signed By: Galo og/shaji:07/20/2023 11:24:04 copy to: Diana Cazares M.D., [facility] [employer], ph: [phone], fax: [phone] letter sent: Normal Exam ACR BI-RADS Category 2: Benign Finding(s) 3346T
== END ==
PROVIDERS: PCP Family Medicine; Referring Provider Family Medicine; Visit Provider Family Medicine
DX: Z12.31 Encounter for screening mammogram for malignant neoplasm of breast (principal); Z85.3 Personal history of malignant neoplasm of breast
CPT/HCPCS: 77063; 77067

== ENCOUNTER → 2023-11-15 15:17 | Outpatient (CLI) | payer MEDICARE, OTHER, SELFPAY ==
[2023-01-29 10:49] VITALS: BMI 25.9
--- NOTE | 2023-11-15 15:19 | DI.US.S_ITS ---
PROCEDURE: US SOFT TISSUE HEAD AND NECK INDICATIONS: F/U LYMPHADENOPATHY. PT IS NOTICING LYMPHNODE MORE OFTEN TECHNIQUE: Real-time scanning was performed of the neck region of interest, with image documentation. COMPARISON: [facility], , US SOFT TISSUE HEAD AND NECK, 06/26/2023, 13:59. FINDINGS: Multiple normal-appearing lymph nodes are identified the largest measuring 5 mm. No adenopathy. No fluid collection. IMPRESSION: No adenopathy. Dictated by: Farzaneh Christine M.D. on 11/15/2023 at 20:09 Approved by: Farzaneh Christine M.D. on 11/15/2023 at 20:10
[2023-11-15 19:27] LABS: Thyroid Stimulating Hormone 0.204 uIU/mL (0.47-4.68)
== END ==
PROVIDERS: PCP Family Medicine; Referring Provider Family Medicine; Visit Provider Family Medicine
DX: E03.9 Hypothyroidism, unspecified (principal); R59.0 Localized enlarged lymph nodes
CPT/HCPCS: 36415; 76536; 84443

== ENCOUNTER → 2024-04-11 13:40 | Outpatient (CLI) | payer MEDICARE, OTHER, SELFPAY ==
[2023-01-29 10:49] VITALS: BMI 25.9
[2024-04-11 15:18] LABS: Thyroid Stimulating Hormone 0.734 uIU/mL (0.47-4.68)
== END ==
PROVIDERS: PCP Family Medicine; Referring Provider Family Medicine; Visit Provider Family Medicine
DX: E03.9 Hypothyroidism, unspecified (principal)
CPT/HCPCS: 36415; 84443

== ENCOUNTER → 2024-07-22 09:42 | Outpatient (CLI) | payer MEDICARE, OTHER, SELFPAY ==
[2023-01-29 10:49] VITALS: BMI 25.9
--- NOTE | 2024-07-22 09:44 | DI.RAD.S_ITS ---
PROCEDURE: XR DEXA AXIAL SKELETON INDICATIONS: screening osteoporosis COMPARISON: [facility], CR, XR DEXA AXIAL SKELETON, 07/07/2021, 10:37. FINDINGS: Lumbar Spine: Bone mineral density 1.046 g/cm2, T score 0, compared to -0.8. Left Hip: Bone mineral density 1 0.943 g/cm2, T score 0, unchanged. Left Femoral Neck: Bone mineral density 0.839 g/cm2, T score -0.1, compared to -0.3. Right Hip: Bone mineral density 0.964 g/cm2, T score 0.2, unchanged. Right Femoral Neck: Bone mineral density 0.875 g/cm2, T score 0.2, compared to -0.3. Fracture Risk Calculation (when applicable): 10-year fracture risk of a major osteoporotic fracture 7.9 percent and of a hip fracture 12 percent. (T score greater or equal to -1.0 to: NORMAL) (T score from -1.1 to -2.4: OSTEOPENIA) (T score less than or equal to -2.5: OSTEOPOROSIS) IMPRESSION: Relatively stable appearance with normal bone mineral density. Follow-up guidelines as follows: Osteoporosis: Consider a repeat DEXA and Vertebral Fracture Assessment (VFA) exam in 2 years or sooner if medically necessary, to reassess this patient's status. Osteopenia: Consider a repeat DEXA in 2-3 years to reassess this patient's status, or if there is a new clinical indication. Normal: Consider a repeat DEXA in 5 years or sooner, or if there is a new clinical indication. All treatment decisions require clinical judgment and consideration of individual patient factors, including patient preferences, comorbidities, previous drug use, risk factors not captured in the FRAX model (e.g., frailty, falls, vitamin D deficiency, increased bone turnover, interval significant decline in bone density ) and possible under- or over-estimation of fracture risk by FRAX. In addition, the NOF Guide recommends that FDA-approved medical therapies be considered in postmenopausal women and men age >= 50 years with a: * Hip or vertebral (clinical or morphometric) fracture * T-score of <=-2.5 at the spine or hip * Ten-year fracture probability by FRAX of >= 3% for hip fracture or >=20% for major osteoporotic fracture. People with diagnosed cases of osteoporosis or at high risk for fracture should have regular bone mineral density tests. For patients eligible for Medicare, routine testing is allowed once every 2 years. The testing frequency can be increased to one year for patients who have rapidly progressing disease, those who are receiving or discontinuing medical therapy to restore bone mass, or have additional risk factors. Dictated by: Farzaneh Christine M.D. on 07/22/2024 at 16:04 Approved by: Farzaneh Christine M.D. on 07/22/2024 at 16:15
--- NOTE | 2024-07-22 09:45 | DI.MG.S_ITS ---
BILATERAL DIGITAL SCREENING MAMMOGRAM 3D/2D WITH CAD POST LUMPECTOMY: 07/22/2024 CLINICAL: Routine screening. Personal history of left breast cancer. Comparison is made to exams dated: 07/19/2023 mammogram, 07/08/2022 mammogram, 07/07/2021 mammogram, 07/06/2020 mammogram - [facility], 01/29/2020 mammogram, and 07/04/2019 mammogram - [facility]. The breasts are heterogeneously dense, which may obscure small masses (category c / 51-75% glandular tissue). Current study was also evaluated with a Computer Aided Detection (CAD) system. There are benign post operative findings in the left breast. No significant masses, calcifications, or other findings are seen in either breast. There has been no significant interval change. IMPRESSION: BENIGN There is no mammographic evidence of malignancy. A 1 year screening mammogram is recommended. This exam was interpreted at Station ID: [id number]. NOTE: For mammograms, a report in lay terms will be sent to the patient. Approximately 15% of breast malignancies will not be visualized mammographically. In the management of a palpable breast mass, a negative mammogram must not discourage biopsy of a clinically suspicious lesion. Electronically Signed By: Dinorah Bradley M.D., Ph.D. joana/[email or web address]:07/24/2024 12:34:03 copy to: Diana Cazares M.D., [employer], ph: [phone], fax: [phone] letter sent: Normal Exam ACR BI-RADS Category 2: Benign
== END ==
PROVIDERS: PCP Family Medicine; Referring Provider Family Medicine; Visit Provider Family Medicine
DX: M81.0 Age-related osteoporosis without current pathological fracture (principal); Z12.31 Encounter for screening mammogram for malignant neoplasm of breast; Z85.3 Personal history of malignant neoplasm of breast; R92.333 Mammographic heterogeneous density, bilateral breasts
CPT/HCPCS: 77063; 77067; 77080

== ENCOUNTER → 2025-06-26 08:57 | Outpatient (CLI) | payer MEDICARE, OTHER, SELFPAY ==
[2023-01-29 10:49] VITALS: BMI 25.9
[2025-06-26 10:18] LABS: Cholesterol 224 mg/dL (140-199); HDL Cholesterol 80 mg/dL (40-60); Triglycerides 118 mg/dL (35-150)
[2025-06-26 10:47] LABS: Thyroid Stimulating Hormone 5.78 uIU/mL (0.47-4.68)
== END ==
PROVIDERS: PCP Family Medicine; Referring Provider Family Medicine; Visit Provider Family Medicine
DX: E78.5 Hyperlipidemia, unspecified (principal); E03.9 Hypothyroidism, unspecified
CPT/HCPCS: 36415; 80061; 84443

== ENCOUNTER → 2025-07-24 13:04 | Outpatient (CLI) | payer MEDICARE, OTHER, SELFPAY ==
[2023-01-29 10:49] VITALS: BMI 25.9
--- NOTE | 2025-07-24 13:05 | DI.MG.S_ITS ---
MM screening mammo BI: 07/24/2025. BI-RADS: 2 CLINICAL: 74-year old female for bilateral screening mammogram. No Tyrer-Cuzick risk score calculation due to the patient's personal history of breast cancer. Patient reports a history of left breast carcinoma diagnosed at age 68. Status-post left lumpectomy with radiation therapy and hormonal therapy. No first-degree family history of breast cancer. The patient had a prior left breast biopsy. PRIOR EXAMS 07/22/2024, 07/19/2023, 07/08/2022, 07/07/2021, MAMMOGRAPHY TECHNIQUE: 2D and 3D (tomosynthesis) digital mammographic views obtained, with additional images as needed for full coverage. Current study was also evaluated with a Computer Aided Detection (CAD) system. DENSITY C. The breasts are heterogeneously dense, which may obscure small masses. MAMMOGRAPHY FINDINGS Right: No suspicious mass, asymmetry, microcalcification, or other abnormality seen. Left: Surgical clips present on the left. Benign-appearing post-surgical changes noted on the left. There are no suspicious masses, calcifications, or other findings in the breast. IMPRESSION: Right * No evidence of malignancy. Left * No evidence of malignancy with benign findings. RECOMMENDATIONS Bilateral * Annual screening mammography. OVERALL ASSESSMENT CATEGORY BI-RADS-2: Benign. The [employer] recommends annual screening mammography beginning at age 40 for women with average risk of breast cancer. ELECTRONICALLY SIGNED: Joaquin Lovelace M.D. on 07/25/2025 at 01:01:38 AM PT Interpreting Station ID: [id number]
== END ==
LOC: MAMMO 13:05
PROVIDERS: PCP Family Medicine; Referring Provider Family Medicine; Visit Provider Family Medicine
DX: Z12.31 Encounter for screening mammogram for malignant neoplasm of breast (principal); R92.333 Mammographic heterogeneous density, bilateral breasts; Z85.3 Personal history of malignant neoplasm of breast
CPT/HCPCS: 77063; 77067

== ENCOUNTER 2025-08-02 15:17 | Emergency (ER) | payer MEDICARE, OTHER, SELFPAY ==
[2023-01-29 10:49] VITALS: BMI 25.9
[2025-08-02] VITALS (7 sets, daily range): BP systolic 151–191; BP diastolic 72–91; PULSE 83–101; RESP 16–18; TEMP 37.6; O2SAT 95–99; BMI 24.2
--- NOTE | 2025-08-02 15:50 | DI.RAD.S_ITS ---
PROCEDURE: XR CHEST 1V INDICATIONS: suspected sepsis TECHNIQUE: One view of the chest was acquired. COMPARISON: [facility], CR, XR CHEST 1V, 01/28/2023, 15:34. FINDINGS: Surgical changes and devices: None. Lungs and pleura: Lungs are clear. No pleural effusions or pneumothorax. Mediastinum: Mediastinal contours appear normal. Heart size is normal. Bones and chest wall: No suspicious bony lesions. Surgical clips in the left breast and left axilla. IMPRESSION: No acute cardiopulmonary abnormality is seen. Dictated by: Israel Ko M.D. on 08/02/2025 at 15:28 Approved by: Israel Ko M.D. on 08/02/2025 at 15:29
--- NOTE | 2025-08-02 16:20 | ED.ABDPAIN ---
HPI - Abdominal Pain General Chief Complaint: Abdominal Pain Stated Complaint: abd cramps, nausea, fever, yesterday & today Time Seen by Provider: 08/02/25 15:58 Source: patient Mode of arrival: Ambulatory History of Present Illness HPI narrative: Patient is a 74-year-old female history of colon polyps remote breast cancer she did not radiation only 7 years ago presenting to day with lower abdominal pain and cramping. She reports over the last 1 week she has had cramping all across her lower abdomen. She denies any bloody stools. She had has a colonoscopy every 5 years for her colon polyps. No nausea or vomiting. She does have a low-grade temp of a 100?. Was feeling nauseous but no vomiting. She took leon prior to arrival which is actually help with her nausea and her pain. Related Data Home Medications ?Medication ?Instructions ?Recorded ?Confirmed ascorbic acid (vitamin C) 500 mg 500 mg PO DAILY ##0 09/30/16 11/18/24 tablet omega 3-hnd-sgw-fish oil 1,000 mg 1 cap DAILY ##0 09/30/16 11/18/24 (120 mg-180 mg) capsule (Fish Oil) biotin 10 mg tablet 10 mg PO DAILY 03/27/18 11/18/24 calcium carbonate 1,000 mg PO DAILY 01/27/20 11/18/24 lactobacillus combination no.9 4 4,000 mmu cells PO DAILY 01/27/20 11/18/24 billion cell capsule (Adult 50 Plus Probiotic) vitamin B complex 1 tab PO DAILY 01/27/20 11/18/24 Iron Belt Tail 2 cap DAILY 07/08/20 11/18/24 cholecalciferol (vitamin D3) 10 800 unit DAILY 07/08/20 11/18/24 mcg (400 unit) chewable tablet (Vitamin D3) coenzyme Q10 100 mg capsule 100 mg PO DAILY 07/08/20 11/18/24 (CoQ-10) milk thistle 200 mg capsule 250 mg PO BID 07/08/20 11/18/24 red yeast rice 600 mg capsule 600 mg PO DAILY 01/17/23 11/18/24 Previous Rx's ?Medication ?Instructions ?Recorded levothyroxine 50 mcg tablet 50 mcg PO DAILY #90 tabs 07/01/25 ciprofloxacin HCl 500 mg tablet 500 mg PO BID #20 tabs 08/02/25 (Cipro) metronidazole 500 mg tablet 500 mg PO Q8H 10 days #30 tabs 08/02/25 Allergies Allergy/AdvReac Type Severity Reaction Status Date / Time Sulfa (Sulfonamide Allergy Mild Hives Verified 08/02/25 15:42 Antibiotics) (SULFA (SULFONAMIDE ANTIBIOTICS)) nitrofurantoin AdvReac Severe Nausea, Verified 08/02/25 15:42 Stomach cramps Patient History Medical History Chest pain Breast cancer Hyperlipidemia Infertility Diverticular disease (2006) Scarlet fever (1958) HSV-1 (herpes simplex virus 1) infection (1953) Ankle pain (1996) Chicken pox (1961) Measles (1959) Mumps (1959) Rubella (1959) Hypothyroidism Colon polyps (2006) Fibroids Shingles (2010) Ankle sprain (1996) Pterygium (1991) Pinguecula (1991) Glaucoma (2011) Frequent UTI (1977) Urethral cyst (2000) Surgical History History of colonoscopy with polypectomy (07/2013) Anesthesia History of urinary tract surgery (2000) Status post tonsillectomy and adenoidectomy (1959) Family History Father Heart disease Hypertension Aneurysm Mother Heart disease Hyperlipidemia Alzheimer's disease Dementia Sister Age: 61 Autoimmune hepatitis Sister Age: 75 Mental health problem Asperger's syndrome Grandfather Cancer Grandmother Cancer Grandfather Pneumonia Grandmother Stroke Social History marital status: household members: spouse pets and animals: Yes education level: college occupational status: employed leisure activities: art other: gardening seatbelt use: always water heater temp set < 120 deg: Yes working smoke detector in home: Yes fire extinguisher in home: Yes carbon monox detector in home: Yes Smoking Status: Former smoker second hand exposure: No alcohol intake: current substance use type: does not use during the past year weight has: remained stable well-balanced diet: daily or most days daily servings fruits/ve or more times/day caffeine: Yes eating out: 1-3 times/week Type(s) of exercise: walking and bicycling frequency: 3-4 times per week duration: 30-45 minutes/day Smoking Status: Former smoker alcohol intake frequency: 0-2 drinks per day Alcohol type: wine Exam Initial Vital Signs Initial Vital Signs: Vital Signs Temperature 99.7 F H 08/02/25 15:42 Pulse Rate 101 H 08/02/25 15:42 Respiratory Rate 18 08/02/25 15:42 Blood Pressure 186/88 H 08/02/25 15:42 Pulse Oximetry 97 08/02/25 15:42 Oxygen Delivery Method Room Air 08/02/25 15:42 GENERAL: [Well-appearing, well-nourished] and in [no acute] distress. HEENT: Head atraumatic,EOMI, pupils reactive, face symmetric, [moist] mucous membranes [EARS:] [Tympanic membranes visualized, no erythema or bulging, no hemotympanum] [PHARYNX:] [No erythema, no tonsillar exudate, no cervical lymphadenopathy] CARDIOVASCULAR: Regular rate and rhythm without murmurs, rubs or gallops. RESPIRATORY: Breath sounds equal bilaterally, no wheezes rales or rhonchi. ABDOMEN: Soft, lower abdominal pain no significant peritoneal signs or localization of : No CVA tenderness EXTREMITIES: Normal range of motion, no clubbing or edema. Neurovascularly intact NEUROLOGICAL: Alert and oriented x4.Normal gait and speech. Cranial nerves II through XII grossly intact. SKIN: Warm, dry, no laceration, no petechiae, no rashes or lesions. Course Orders Ordered: ED Orders 08/02/25 15:50 XR chest 1V Stat EKG-12 Lead Stat RT Consult Eval and Treat NOW 08/02/25 16:00 Complete Blood Count AUTO DIFF Stat Comprehensive Metabolic Panel Stat Lactate (Lactic Acid) Stat Lipase Stat PTT Partial Thromboplastin [place] Stat Procalcitonin Stat Prothrombin Time INR Stat 08/02/25 16:07 Urine Microscopic Stat 08/02/25 16:19 CT abdomen pelvis w con Stat Blood Culture Stat Ondansetron HCl (Ondansetron 4 Mg/2 Ml Inj) 4 mg IV NOW PRN PRN Reason: Nausea And Vomiting Ondansetron HCl (Ondansetron 4 Mg Odt) 4 mg PO NOW PRN PRN Reason: Nausea And Vomiting Discontinued Medications Ciprofloxacin (Ciprofloxacin 250 Mg Tablet) 500 mg PO NOW ONE Stop: 08/02/25 17:32 Last Admin: 08/02/25 17:36 Dose: 500 mg Sodium Chloride (Normal Saline 0.9%) 1,000 mls @ 1,000 mls/hr IV BOLUS ONE Stop: 08/02/25 16:49 Last Admin: 08/02/25 16:28 Dose: 1,000 mls/hr Documented By: MICHAEL Ketorolac Tromethamine (Ketorolac 30 Mg/Ml Vial) 15 mg IV NOW ONE Stop: 08/02/25 16:20 Last Admin: 08/02/25 16:28 Dose: 15 mg Documented By: MICHAEL Metronidazole (Metronidazole 500 Mg Tablet) 500 mg PO NOW ONE Stop: 08/02/25 17:32 Last Admin: 08/02/25 17:36 Dose: 500 mg Vital Signs Vital signs: Vital Signs - 8 hr 08/02/25 15:42 08/02/25 16:04 08/02/25 16:04 Temperature 99.7 F H Pulse Rate 101 H 99 H Respiratory Rate 18 Blood Pressure 186/88 H 191/89 H Pulse Oximetry 97 99 Oxygen Delivery Method Room Air 08/02/25 16:30 08/02/25 16:30 08/02/25 17:00 Temperature Pulse Rate 90 83 Respiratory Rate Blood Pressure 151/75 H Pulse Oximetry 95 96 Oxygen Delivery Method 08/02/25 17:29 08/02/25 17:29 08/02/25 17:30 Temperature Pulse Rate 86 84 Respiratory Rate 16 Blood Pressure 172/91 H Pulse Oximetry 98 97 Oxygen Delivery Method Room Air 08/02/25 17:30 Temperature Pulse Rate Respiratory Rate Blood Pressure 163/72 H Pulse Oximetry Oxygen Delivery Method MDM - Abdominal Pain Lab Data 08/02/25 16:00 08/02/25 16:00 Labs: Lab Results 08/02/25 Range/Units 16:00 WBC 13.1 H (4.5-11.0) X10^3/uL RBC 4.72 (4.0-5.2) X10^6/uL Hgb 14.2 (12.0-16.0) g/dL Hct 42.1 (36-46) % MCV 89.1 (80-100) fL MCH 30.2 (26-34) PG MCHC 33.8 (30-36) % RDW 13.4 (11.6-14.8) % Plt Count 303 (150-400) X10^3/uL Neut % (Auto) 84.2 H (50-75) % Lymph % (Auto) 6.4 L (25-40) % Alexander % (Auto) 8.6 (3-14) % Eos % (Auto) 0.1 L (2-4) % Baso % (Auto) 0.7 (0-2) % Neut # (Auto) 36331 H (6193-8899) /uL Lymph # (Auto) 800 L (3798-3916) /uL Alexander # (Auto) 1100 H (0-900) /uL Eos # (Auto) 0 (0-450) /uL Baso # (Auto) 100 (0-100) /uL PT 11.5 (9.4-12.5) SECONDS INR 1.0 (0.9-1.3) APTT 30 (25.1-36.5) SECONDS Sodium 138 (137-145) mmol/L Potassium 3.6 (3.4-5.1) mmol/L Chloride 104 (98-107) mmol/L Carbon Dioxide 24 (22-32) mmol/L BUN 13 (7-17) mg/dL Creatinine 0.75 (0.52-1.04) mg/dL Estimated GFR > 60 (>60) mL/min BUN/Creatinine Ratio 17.3 (6-22) Glucose 121 H (70-99) mg/dL Lactate 1.0 (0.7-2.1) mmol/L Calcium 9.4 (8.4-10.2) mg/dL Total Bilirubin 0.8 (0.2-1.3) mg/dL AST 34 (14-36) IU/L ALT 35 H (<35) IU/L Alkaline Phosphatase 78 (38-126) U/L Total Protein 8.0 (6.3-8.2) g/dL Albumin 4.7 (3.5-5.0) g/dL Globulin 3.3 (1.7-4.1) g/dL Albumin/Globulin Ratio 1.4 (1.0-2.8) Lipase 104 (23-300) U/L Procalcitonin 0.061 (<0.5) ng/mL Point of care testing: Urine Dip Bedside Urine Glucose Negative Bedside Urine Bilirubin - Negative Bedside Urine Ketone ++ 40 Urine Specific [place] 1.01 Bedside Urine Occult Blood - Negative Bedside Urine pH 7.0 Bedside Urine Protein - Negative Bedside Urine Urobilinogen - Negative Bedside Urine Nitrite - Negative Bedside Urine Leukocytes - Negative Esterase Imaging Data CT scan - abdomen/pelvis: Radiologist's Impression: PROCEDURE: CT ABDOMEN PELVIS W CON INDICATIONS: Abdominal pain TECHNIQUE: After the administration of intravenous contrast, axial sections acquired from the lung bases to the pubic symphysis. Coronal and sagittal reformats were performed. For radiation dose reduction, the following was used: automated exposure control, adjustment of mA and/or kV according to patient size. COMPARISON: None. FINDINGS: Image quality: Diagnostic. Lower Chest: No significant findings. ABDOMEN: Liver: No solid mass. Gallbladder: No radiopaque gallstones or wall thickening. Biliary ducts: No biliary dilation. Pancreas: No ductal dilation. Spleen: Size is within normal limits. Adrenal Glands: No adrenal nodules. Kidneys and Ureters: No hydronephrosis. No solid mass. No complex renal cystic lesion which requires follow up. Stomach and Bowel: Normal appendix. Mural thickening of the sigmoid colon, concerning for acute diverticulitis. No adjacent fluid collection. There is trace free fluid in the pouch of [place]. No peripherally enhancing collection. Peritoneum: No abnormal intraperitoneal fluid. No free air. Ventral Wall: No significant ventral hernia. Abdominal Nodes: No retroperitoneal or mesenteric adenopathy by size criteria. Vessels: Aorta and inferior vena cava are normal in size. PELVIS: Pelvic Organs: Unremarkable. Bladder: No bladder wall thickening, accounting for underdistention. Pelvic Nodes: No enlarged lymph nodes. Miscellaneous: No inguinal hernias are seen. Bones: No aggressive osseous abnormality. Multilevel degenerative changes of the spine, with grade 1 retrolisthesis of L2 on L3 and grade 1 anterolisthesis of L4 on L5. IMPRESSION: Findings concerning for acute diverticulitis of the sigmoid colon with circumferential mural thickening. Recommend follow-up colonoscopy following resolution of symptoms to exclude underlying mass / lesion if patient has not undergone recent colonoscopy. Dictated by: Israel Ko M.D. on 08/02/2025 at 15:45 Chest x-ray: Radiologist's Impression: PROCEDURE: XR CHEST 1V INDICATIONS: suspected sepsis TECHNIQUE: One view of the chest was acquired. COMPARISON: [facility], XR CHEST 1V, 01/28/2023, 15:34. FINDINGS: Surgical changes and devices: None. Lungs and pleura: Lungs are clear. No pleural effusions or pneumothorax. Mediastinum: Mediastinal contours appear normal. Heart size is normal. Bones and chest wall: No suspicious bony lesions. Surgical clips in the left breast and left axilla. IMPRESSION: No acute cardiopulmonary abnormality is seen. Dictated by: Israel Ko M.D. on 08/02/2025 at 15:28 MDM Narrative Medical decision making narrative: Patient is 74-year-old female history of colon polyps presenting today with lower abdominal pain. It has been progressively getting worse and crampy. Low-grade temp of 99? Blood work has been reviewed CBC shows mild leukocytosis of 13.1 with left shift CMP normal electrolytes glucose 121 Lactic acid 1.0 Liver enzymes bilirubin lipase within normal limits Imaging reviewed CT abdomen pelvis shows acute diverticulitis without complication Chest x-ray no acute cardiopulmonary process She is given 1st dose of antibiotics here Cipro and Flagyl. Discussion with her in regards to management. She does get regular colonoscopies. Differential diagnosis: Appendicitis diverticulitis ischemic bowel, malignant Discharge Plan Departure Patient Disposition: Home Clinical Impression: Diverticulitis Instructions: Low-Fiber/Low-Residue Diet, DI for Diverticulitis Activity Restrictions/Additional Instructions: *You have been diagnosed with diverticulitis *What to do: At this time increase fluids as tolerated recommend a low-fiber diet. Continue with your colonoscopy screening *Continue to take medications as directed Cipro 500 mg twice a day for 10 days Flagyl 500 mg 3 times a day for 10 days Tylenol Motrin as needed for pain *Follow up with your primary care provider in 2-3 days or call [phone] *Return to ER if you should have increasing abdominal pain not tolerating fluids [or] any new, worsening or concerning symptoms Prescriptions: New ciprofloxacin HCl [Cipro] 500 mg tablet 500 mg PO BID Qty: 20 0RF metronidazole 500 mg tablet 500 mg PO Q8H 10 Days Qty: 30 0RF No Action ascorbic acid (vitamin C) 500 MG tablet 500 mg PO DAILY Qty: 0 omega 8-mbg-ktc-fish oil [Fish Oil] 1,000 MG capsule 1 cap DAILY Qty: 0 Adult 50 Plus Probiotic 4 billion cell capsule 4,000 mmu cells PO DAILY Rx Instructions: administer with a meal vitamin B complex Tablet 1 tab PO DAILY calcium carbonate 500 mg calcium (1,250 mg) tablet 1,000 mg PO DAILY levothyroxine 50 mcg tablet 50 mcg PO DAILY Qty: 90 0RF biotin 10 mg tablet 10 mg PO DAILY milk thistle 200 mg Capsule 250 mg PO BID coenzyme Q10 [CoQ-10] 100 mg Capsule 100 mg PO DAILY cholecalciferol (vitamin D3) [Vitamin D3] 10 mcg (400 unit) Tablet,Chewable 800 unit DAILY Iron Belt Tail 2 cap DAILY red yeast rice 600 mg Capsule 600 mg PO DAILY Rx Instructions: give with meal/snack Referrals: Diana Cazares MD [Primary Care Provider, Family Practice] Stand Alone Forms: Patient Portal/API
[2025-08-02] MEDS: KETOROLAC 30 MG/ML VIAL 15 MG IV (16:28)
[2025-08-02] MEDS: SODIUM CHLORIDE 0.9% 1,000 ML 1000 ML IV (16:28)
[2025-08-02 16:29] LABS: INR 1.0 (0.9-1.3); Prothrombin Time 11.5 SECONDS (9.4-12.5)
[2025-08-02 16:32] LABS: PTT Partial Thromboplastin Tim 30 SECONDS (25.1-36.5)
[2025-08-02 16:34] LABS: Add Manual Diff / Slide Review NO; Hematocrit 42.1 % (36-46); Hemoglobin 14.2 g/dL (12.0-16.0); Lymphocytes Absolute Auto 800 /uL (1100-4500); Mean Corpuscular HGB Conc 33.8 % (30-36); Mean Corpuscular Hemoglobin 30.2 PG (26-34); Mean Corpuscular Volume 89.1 fL (80-100); Platelet Count 303 X10^3/uL (150-400)
[2025-08-02 16:37] LABS: Alanine Aminotransferase 35 IU/L (<35); Albumin 4.7 g/dL (3.5-5.0); Albumin Globulin Ratio 1.4 (1.0-2.8); Alkaline Phosphatase 78 U/L (38-126); Blood Urea Nitrogen 13 mg/dL (7-17); Calcium 9.4 mg/dL (8.4-10.2); Carbon Dioxide 24 mmol/L (22-32); Chloride 104 mmol/L (98-107); Estimated Glomerular Filt Rate > 60 mL/min (>60); Globulin 3.3 g/dL (1.7-4.1); Glucose 121 mg/dL (70-99); HEMOLYSIS < 15 (0-50); Lactate (Lactic Acid) 1.0 mmol/L (0.7-2.1); Lipase 104 U/L (23-300); Potassium 3.6 mmol/L (3.4-5.1); Sodium 138 mmol/L (137-145); Total Protein 8.0 g/dL (6.3-8.2)
[2025-08-02 16:55] LABS: Procalcitonin 0.061 ng/mL (<0.5)
--- NOTE | 2025-08-02 17:16 | EKG_ITS ---
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
[2025-08-02] MEDS: CIPROFLOXACIN 250 MG TABLET 500 MG PO (17:36)
[2025-08-02 18:15] LABS: Culture Indicated Urine Cult Not Indicated
== END 2025-08-02 17:51 | disposition home or self-care (01) ==
PROVIDERS: Emergency Provider Emergency Medicine; PCP Family Medicine
DX: K57.32 Diverticulitis of large intestine without perforation or abscess without bleeding (principal); R11.0 Nausea; R50.9 Fever, unspecified
CPT/HCPCS: 36415; 71045; 74177; 80053; 81003; 81015; 83605; 83690; 84145; 85025; 85610; 85730; 87040; 93005; 96361; 96374; 99284; J1885; J2405; J7030; Q9967